=== PATIENT | female | born 1985 | race Caucasian/White ===

== ENCOUNTER → 2023-09-08 11:20 | Outpatient (CLI) | payer OTHER, SELFPAY ==
--- NOTE | ~2023-09-08 | US_ITS ---
EXAMINATION: US transvaginal DATE: 09/08/2023 12:04 INDICATION: Menorrhagia Comparison:No prior studies for comparison. TECHNIQUE: Multiple transabdominal and endovaginal sonographic images of the pelvis performed. FINDINGS: The uterus measures 7.2 x 4.5 x 5.7 cm. The endometrial complex measures 1.6 cm. The right ovary measures 4 x 2.5 x 3.5 cm and the left ovary measures 2.2 x 1.8 x 1.4 cm. There is a right ovarian cyst measuring 2.8 cm. There are small follicles in each ovary. Normal doppler signal i n both ovaries. There is no free fluid in the pelvis. There are no abnormal masses seen on either side. IMPRESSION: 1. Right ovarian cyst measuring 2.8 cm. 2: Endometrial thickening measuring 1.6 cm. Reviewed, dictated and finalized at location L.
== END ==
PROVIDERS: PCP Nurse Practitioner; Visit Provider Nurse Practitioner
DX: N93.8 Other specified abnormal uterine and vaginal bleeding (principal); N92.0 Excessive and frequent menstruation with regular cycle; N83.201 Unspecified ovarian cyst, right side
CPT/HCPCS: 76830

== ENCOUNTER 2024-01-25 04:14 | Day surgery (SDC) | payer OTHER, SELFPAY ==
--- NOTE | 2024-01-14 16:25 | SUR.PREOP ---
Report to the Outpatient Waiting Room, entrance under the green pavilion located off [facility], at time 0815 on date 01/25/24. Planned Procedure Time: 1015. Time changes happen often and if your time is changed the preop area will call you the afternoon before. - You and your visitor will be asked to self-screen and do not enter if you have any COVID symptoms. - A mask is optional within the hospital at this time. Patients may have clear liquids (water, carbonated beverages, clear teas, apple juice) until 3 hours prior to surgery with a maximum of 20 ounces. - NO CLEAR LIQUIDS AFTER 0715 - No food from midnight until time of surgery - Infants may have breast milk until 4 hours before surgery, infant formula 6 hours prior to surgery. - Children will be allowed to drink immediately following surgery. If applicable, please bring a bottle or sippy cup to assist with drinking. Juice, water, soda, and popsicles are readily available. For infants on formula, please bring formula the day of surgery. Pacifiers are allowed. Take the following medications with a SIP of water the morning of surgery: TIZANIDINE, ACETAMINOPHEN DO NOT STOP ANY OF YOUR OTHER PRESCRIPTION MEDICATIONS PRIOR TO SURGERY ?EXCEPT THE FOLLOWING Medications to discontinue per physician N/A Date to take last dose Please no make-up, nail indonesian, hairspray, perfume, deodorant, or body powder the day of surgery. No jewelry (including any body piercings) or valuables the day of surgery, leave them at home. Please take a shower or bath the night before, or the morning of, surgery with an antibacterial soap. Wear comfortable, loose fitting clothing. Children are encouraged to wear pajamas. - Jewelry must be removed prior to entering the operating room. Rings and piercings that are not removed may be cut off. - The hospital will not accept responsibility for valuables. - Please leave all valuables, including medications, at home the day of surgery. If you are going home after surgery, a licensed lead driver must drive you home. - NO public transportation without another adult if you receive anesthesia. - We recommend that an adult stay with you for 24 hours following discharge. - We also recommend that you do not drive, make important decision, drink alcoholic beverages, or take any drugs that were not prescribed by your health care provider for at least 24 hours after your discharge time. For Pediatric surgeries, we recommend two adults accompany the child home. Follow any additional instructions given to you from your surgeon. If you or anyone in your household have experienced Covid symptoms in the past week, please notify your surgeon or the nurse liaison at the phone number below for possible testing. Telephone instructions given to KSENIA RIOS and asked if any additional questions and then verbalized understanding. Patient advised to call surgeon office or pre surgery nurse liaison [phone] if any additional questions.
[2024-01-14 16:42] VITALS: BMI 35.9
[2024-01-25] VITALS (7 sets, daily range): BP systolic 98–119; BP diastolic 43–84; PULSE 47–66; RESP 12–14; TEMP 36.8; O2SAT 98–100; BMI 36.6
--- NOTE | 2024-01-25 07:25 | WPDHPUPDATE1 ---
History and Physical Update Update Date/Time: 01/25/24 07:25 History and Physical has been reviewed, including an updated exam of the patient. There are NO changes in the patient's condition. Risks, benefits, and alternatives have been discussed and questions answered. Patient agrees to proceed with procedure.
--- NOTE | 2024-01-25 07:25 | PM.HPGS ---
History of Present Illness History of Present Illness Consent: Risks, benefits, and alternatives have been discussed and questions answered. Patient agrees to proceed with procedure. Chief complaint: menorrhagia Narrative: Rosaura Vyas is a 38 year old female with a benign workup for menorrhagia. Multiple options were discussed and the patient has decided on endometrial ablation. Risks of infection, bleeding, perforation, and device failure are reviewed with the patient success of the procedure was also discussed. Patient voices understanding and agrees to proceed. Review of Systems Review of Systems: not repeated day of surgery; patient states no changes in status PMFSH Past Medical History Medical History (Updated 01/25/24 @ 07:27 by Sharon Bro MD) Depression (normal spontaneous vaginal delivery) x1 Surgical History Surgical History (Updated 01/25/24 @ 07:27 by Sharon Bro MD) History of section, low transverse x2 Status post cholecystectomy Social History Social History Smoking status: Never smoker Living arrangements: with family Spiritual care concerns: No Meds Home Medications and Allergies Home Medications Medication Instructions Recorded Confirmed Type acetaminophen 500 mg tablet 1,000 mg PO Q6-8H PRN Pain 01/14/24 01/14/24 History (Tylenol Extra Strength) misoprostol 200 mcg tablet 1,000 mcg PO HS 01/14/24 01/14/24 History tizanidine 4 mg tablet 4 mg PO Q8-10H PRN Muscle Pain 01/14/24 01/14/24 History Allergies Allergy/AdvReac Type Severity Reaction Status Date / Time doxycycline Allergy Severe Dizziness Verified 01/14/24 16:37 Penicillins Allergy Severe Difficulty Verified 01/14/24 16:37 Breathing promethazine [From Phenergan] Allergy Severe Difficulty Verified 01/14/24 16:37 Breathing Exam Const: General: healthy appearing and alert Orientation/consciousness: patient oriented x3 Resp: Effort & Inspection: normal respiratory effort GI: GI Palp: Yes Soft to palpation, No Tenderness to palpation present (GI) and No Palpable mass present : External Female Exam: normal external appearance Speculum Exam - Vagina: normal appearance of the vagina and normal vaginal discharge Speculum Exam - Cervix: normal appearance of the cervix Bimanual exam- vagina & uterus: uterine size normal and consistency normal Bimanual Exam- Adnexa, other: normal adnexae and No adnexal tenderness Neuro: General: patient oriented x3 Assessment and Plan Assessment and plan (1) Menorrhagia: Code(s): N92.0 - Excessive and frequent menstruation with regular cycle Status: Acute Assessment and Plan: plan to proceed with Marce endometrial ablation
[2024-01-25] MEDS: ACETAMINOPHEN 500 MG TABLET 1000 MG PO (08:51)
--- NOTE | 2024-01-25 09:51 | WPDANESEPPF ---
Anes - Initial Pre Proc Eval Procedure: Operation Date: 01/25/24 10:15 Proposed Procedures p Hysteroscopy with Marce Endometrial Ablation - Sharon Bro MD Date/Time: 01/25/24 09:51 Surgeon: Sharon Bro MD Pre Op Diagnosis: menorrhagia Patient Data Age: 38 Gender: F Height: 1.7 m Weight: 106 kg Last Vital Signs Temp 36.8 C 01/25/24 09:01 Pulse 58 L 01/25/24 09:01 Resp 14 01/25/24 09:01 BP 110/43 L 01/25/24 09:01 Pulse Ox 100 01/25/24 09:01 O2 Del Method Room Air 01/25/24 09:01 Allergies Allergy/AdvReac Type Severity Reaction Status Date / Time doxycycline Allergy Severe Dizziness Verified 01/14/24 16:37 Penicillins Allergy Severe Difficulty Verified 01/14/24 16:37 Breathing promethazine [From Phenergan] Allergy Severe Difficulty Verified 01/25/24 08:37 Breathing Home Medications Medication Instructions Recorded Confirmed Type acetaminophen 500 mg tablet 1,000 mg PO Q6-8H PRN Pain 01/14/24 01/25/24 History (Tylenol Extra Strength) misoprostol 200 mcg tablet 1,000 mcg PO HS 01/14/24 01/14/24 History tizanidine 4 mg tablet 4 mg PO Q8-10H PRN Muscle Pain 01/14/24 01/14/24 History Patient hx anesthesia problems: none Family hx anesthesia problems: none Results Review: All pre-operative results and documents have been reviewed as part of the pre-operative evaluation. [facility] Past Medical History Medical History Depression (normal spontaneous vaginal delivery) x1 Surgical History Surgical History History of section, low transverse x2 Status post cholecystectomy Social History Social History Smoking status: Never smoker Living arrangements: with family Spiritual care concerns: No Anes - Eval Final PreProcedure Day of Procedure 01/25/24 09:51 Patient weight: obese Heart: regular rate and rhythm Lungs: clear to auscultation Airway: Mallampati scale class II Neurological: alert and oriented Last oral intake: >/= 8 hours ASA classification: II Emergent: no Anesthetic plan: proceed Anesthesia type and monitoring: general GIVS and standard monitoring Results Review: All pre-operative results and documents have been reviewed as part of the pre-operative evaluation. Informed Consent: The patient's anesthetic plan and its attendant risks and benefits were discussed with the patient/family/POA. Questions were solicited and answers provided to the satisfaction of the patient/family/POA.
[2024-01-25] MEDS: LACTATED RINGERS 1,000 ML 30 ML IV CONT (10:15)
--- NOTE | 2024-01-25 10:21 | W.PM.PROC2 ---
Procedure Note - Detailed Date of Procedure 01/25/24 Pre-op Diagnosis menorrhagia Post-op Diagnosis Same Procedure Performed D&C hysteroscopy with Marce endometrial ablation Surgeon Sharon Bro MD Anesthesia MAC Findings internal cervical stenosis; polyps of the endometrium and endocervical canal; otherwise grossly normal appearance Description of Procedure The patient is taken to the operating room and placed under anesthesia in the dorsal position. She was prepped and draped in usual sterile fashion. [place] speculum was placed in the vagina and the cervix grasped on the anterior lip with a tenaculum. The uterus is attempted to be sounded and stenosis is encountered. The 4/5 Hegar dilator was used to open the internal os. The diagnostic hysteroscope is then placed and due to the polyps being present in the endometrium and endocervix the Aveeta resection device is opened and placed. The polyps are removed in their entirety. The Marce device is then opened. The cervix is serially dilated to an 8 Hegar. The uterus is sounded to 8cm. The device is set at 5cm. The Marce device is opened and placed. Cavity assessment passed on the 1st attempt. Treatment cycle lasted the full 10minutes. The ablation device is removed and the hysteroscope replaced with good ablation effect noted. All instruments are removed. Sponge, needle, and instrument counts are correct per the OR staff. The patient was awakened from anesthesia and taken to recovery in stable condition. Estimated Blood Loss 5 Drains No Packing No Pathology Yes ( Endometrial shavings) Complications No immediate complications Condition Stable Disposition PACU
[2024-01-25] MEDS: oxyCODONE HCL (*CRX) 5 MG TAB IR PO ×2 (11:14→12:44)
[2024-01-25] MEDS: HYDROmorphone HCL INJ (*CRX) 1 MG/ML SYR 0.5 MG IV PUSH (12:21)
== END 2024-01-25 12:53 | disposition home or self-care (01) ==
PROVIDERS: PCP Internal Medicine; Visit Provider Obstetrics & Gynecology Gynecology
PROC: 0U5B8ZZ Destruction of Endometrium, Via Natural or Artificial Opening Endoscopic (ICD-10-PCS; CPT 58563; principal; 2024-01-25 10:15)
DX: N92.0 Excessive and frequent menstruation with regular cycle (principal); N84.0 Polyp of corpus uteri; N84.1 Polyp of cervix uteri; E66.9 Obesity, unspecified; Z68.36 Body mass index [BMI] 36.0-36.9, adult
CPT/HCPCS: 58563; 88305; A9270; J1170; J2250; J2704; J3010; J7120

== ENCOUNTER 2025-01-09 09:03 | Outpatient (CLI) | payer OTHER, SELFPAY ==
--- OUTSIDE RECORDS SUMMARY | 2025-01-09 09:55 | XMS_ITS | Clinical Summary ---
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 This disclosure is being madepursuant to the Care Everywhere program and may not contain all information available regarding this patient. Last updated 18.[facility] Allergies Active Allergy Reactions Criticality Noted Date Comments Penicillins Shortness of Breath High 06/09/2019 Promethazine Shortness of Breath High 06/09/2019 Medications * Be aware that medications may not be up to date on this document. Alwaysverify current medications with the patient. Medication Sig Dispensed Refills Start Date End Date Status pyridoxine (VITAMIN B-6) 25 MG tablet Take 50 mg by mouth once daily Active Vit-Fe Fumarate-FA ( VITAMIN) 28-0.8 MG tablet Take 1 tablet by mouth once daily Active diphenhydrAMINE-APAP, sleep, (TYLENOL PM EXTRA STRENGTH PO) Active Active Problems Problem Noted Date Diagnosed Date Gestational diabetes mellitus (GDM) in third tri mester 05/17/2019 Polyhydramnios, antepartum complication 05/10/20 19 Excessive growth affec ting management of in third trimester 05/10/2019 Social History Tobacco Use Types Packs/Day Years Used Date Smoking Tobacco: Never Smokeless Tobacco: Never Alcohol Use Standard Drinks/Week Comments No 0 (1 standard drink = 0.6 oz pur e alcohol) Sex and Gender Information Value Date Recorded Sex Assigned at Not on file Gender Identity Not on file Sexual Orientation Not on file Last Filed Vital Signs Vital Sign Reading Time Taken Comments Blood Pressure 116/64 06/09/2019 2:56 PM CDT Pulse 95 06/09/2019 2:56 PM CDT Temperature - - Respiratory Rate 18 05/30/2019 4:21 PM CDT Oxygen Saturation - - Inhaled Oxygen Concentration - - Weight 105.2 kg (232 lb) 06/09/2019 2:56 PM CDT Height - - Body Mass Index - - Plan of Treatment Health Maintenance Due Date Last Done Comments PAP SMEAR 1986 HIV SCREENING 2001 HEPATITIS C SCREENING 05/06/2004 DTAP/TDAP/TD VACCINES (1 - Tdap) 2005 HEPATITIS B VACCINE (1 of 3 - 19+ 3-dose series) 2005 COVID-19 VACCINE ( - 2023-2 5 season) 2024 INFLUENZA VACCINE (#1) 2024 0, 09/20/2018, 11/03/2014 DEPRESSION SCREENING 11/30/2024 ZOSTER VACCINE (1 of 2) 2036 HIB VACCINE Aged Out No longer eligi ble based on patient's age to complete this topic HPV VACCINE Aged Out No longer eligi ble based on patient's age to complete this topic MENINGOCOCCAL (Group B) VACCINE Aged Out No longer eligible b ased on patient's age to complete this topic MENINGOCOCCAL VACCINE Aged Out No jorge alberto emelina eligible based on patient's age to complete this topic PNEUMOCOCCAL VACCINE Aged Out No long er eligible based on patient's age to complete this topic Ksenia Rios Personal/Famil y Self 1985 KSENIA RIOS Personal/Famil y Spouse
--- OUTSIDE RECORDS SUMMARY | 2025-01-09 09:55 | XMS_ITS | Referral Summary ---
Author Organization [facility] Address [address] [place] [phone] Care Team Providers Care Rattling Machine Tender Name Role Phone Yesica Stovall MD Primary Care Provider Encounters Date Type Department Care Team Description 10/17/2024 8:10 AM CRM ARCHITECT - 10/17/2024 11:59 PM CRM ARCHITECT Hospital Encounter [facility] Di[facility] Imaging [address] [place] [id number] Lumbar pain Discharge Disposition: Discharge to home or self care 10/17/2024 8:00 AM CRM ARCHITECT Office Visit [facility] Orthopedics and Sports Medicine [address] [place] [address] [place] [phone] Denise Wright, NAE Chronic right-sided low back pain with right-sided sciatica; Degeneration of intervertebral disc of lumbar region, mild L3-L4 with discogenic back pain and lower extremity pain; Myalgia, other site from Last 3 Months Allergies Active Allergy Reactions Criticality Noted Date Comments Doxycycline Dizziness,Headache,V ision changes Medium 04/21/2022 Penicillins Shortness of breath High 01/23/2018 Promethazine Shortness of breath,Palpitations High 03/28/2019 Sulfamethoxazole-Trimet hoprim Headache,Joint pain,Other (See comments) Low 10/01/2023 Nausea, stiff neck, Medications ascorbic acid, vitamin C, (VITAMIN C) 1,000 mg CR tablet Active butalbital-aceta minophen-caffein e (ESGIC) 50-325-40 mg per tablet Take 1 tablet by mouth every 4 (four) hours as needed for pain 04/18/2024 Active tiZANidine (ZANAFLEX) 4 mg tablet Take 1 tablet (4 mg total) by mouth every 8 (eight) hours as needed for muscle spasms for up to 15 days 45 tablet 11/09/2024 Active Active Problems No known active problems Resolved Problems Problem Noted Date Diagnosed Date Resolved Date Gestational diabetes mellitu s (GDM) in third trimester 05/17/2019 11/14/2022 Immunizations Name Administration Dates Next Due Influenza, Quadrivalent, Rec ombinant, Egg Free, Preservative Free, Intramuscular 09/20/2018 Influenza, Quadrivalent, Spl it, Preservative Free, Intramuscular 08/27/2020,11/03/2014 Influenza, Unspecified 08/15/2024(Deferr ed: Patient Refused),08/30/2023(Deferred: Patient Refused),09/01/2022(Deferred: Patient Refused),08/30/2022(Deferred: Patient Refused),02/08/2020(Deferred: Patient Refused) Tdap 05/13/2019 Social History Tobacco Use Types Packs/Day Years Used Date Smoking Tobacco: Never Smokeless Tobacco: Never Tobacco Cessation:Counseling Given: Not Answered Alcohol Use Standard Drinks/Week Comments Not Currently 0 (1 standard drink = 0.6 oz pur e alcohol) AUDIT-C Answer Date Recorded Q1: How often do you have a drink containing alcohol? Never 04/26/2024 Q2: How many drinks containi ng alcohol do you have on a typical day when you are drinking? Patient does not drink Q3: How often do you have si x or more drinks on one occasion? Never 04/26/2024 PHQ-2 Answer Date Recorded PHQ-2 Total Score (If total score is 3 or more points, staff should administer the PHQ-9) 0 08/15/2024 Comments No Sex and Gender Information Value Date Recorded Sex Assigned at Not on file Legal Sex Female 8:59 PM CRM ARCHITECT Gender Identity Female 02/08/2020 5:42 AM CDT Sexual Orientation Not on file Last Filed Vital Signs Vital Sign Reading Time Taken Comments Blood Pressure 110/76 08/15/2024 11:06 AM CDT Pulse 74 08/15/2024 11:06 AM CDT Temperature 36.4 C (97.5 F) 08/15/2024 11:06 AM CDT Respiratory Rate 12 04/26/2024 3:38 PM CDT Oxygen Saturation 98% 08/15/2024 11:06 AM CDT Inhaled Oxygen Concentration - - Weight 108 kg (238 lb) 10/17/2024 8:04 AM CRM ARCHITECT Height 170.2 cm (5' 7 ) 10/17/2024 8:04 AM CRM ARCHITECT Body Mass Index 37.28 10/17/2024 8:04 AM CRM ARCHITECT Plan of Treatment Not on file Procedures Procedure Name Priority Date/Time Associated Diagnosis Comments XR SPINE LUMBAR 2 OR 3 VIEWS Schedule Routine, Read Routine (OP Routine) 10/17/2024 8:21 AM CRM ARCHITECT Lumbar pain IL INJECTION SINGLE/INTERNET MARKETING MANAGER TRIGGER POINT 1/2 MUSCLES Routine 10/17/2024 8:00 AM CRM ARCHITECT Myalgia, other site IL INJECTION SINGLE/INTERNET MARKETING MANAGER TRIGGER POINT 1/2 MUSCLES Routine 10/17/2024 8:00 AM CRM ARCHITECT Myalgia, other site HM PAP SMEAR WITH HPV Routine 07/04/2019 from Last 3 Months or Most Recently Relevant to Health Maintenance Results * XR Spine Lumbar 2 or 3 Views (10/17/2024 8:21 AM CRM ARCHITECT) Anatomical Region Laterality Modality Spine N/A Computed Radiogr aphy 10/18/2024 12:4 1 PM CRM ARCHITECT Narrative 10/18/2024 12:42 PM CRM ARCHITECT EXAM DESCRIPTION: XR SPINE LUMBAR 2 OR 3 VIEWS REASON FOR STUDY: pain Pain in low back and right lateral hip since fall in Nov 2023 FINDINGS: Two views submitted with comparison 12/15/2023. No acute fractures are identified. There is mild L3-L4 degenerative disc disease. Flexion-extension views demonstrate no abnormal translation. IMPRESSION: Mild L3-L4 degenerative disc disease. THIS IS AN ELECTRONICALLY VERIFIED FINAL REPORT 10/18/2024 12:42 PM - Electronically signed by Alden Stevens M.D. T: Report ID: [id number] Reading Location: [id number] Procedure Note Alden Stevens MD - 10/18/2024 EXAM DESCRIPTION: XR SPINE LUMBAR 2 OR 3 VIEWS REASON FOR STUDY: pain Pain in low back and right lateral hip since fall in Nov 2023 FINDINGS: Two views submitted with comparison 12/15/2023. No acute fractures are identified. There is mild L3-L4 degenerative disc disease. Flexion-extension views demonstrate no abnormal translation. IMPRESSION: Mild L3-L4 degenerative disc disease. THIS IS AN ELECTRONICALLY VERIFIED FINAL REPORT 10/18/2024 12:42 PM - Electronically signed by Alden Stevens M.D. T: Report ID: [id number] Reading Location: [id number] Denise Wright NP IMG XR PROCEDURES Final Res ult * IL INJECTION SINGLE/INTERNET MARKETING MANAGER TRIGGER POINT 1/2 MUSCLES (10/17/2024 8:00 AM CRM ARCHITECT) Narrative Denise Wright NP - 10/17/2024 8:00 AM CRM ARCHITECT Denise Wright NP 10/18/2024 1:20 PM Trigger Point Injection Performed by: Denise Wright NP Authorized by: Denise Wright NP Consent Given by: Patient Site marked: the procedure site was marked Timeout: prior to procedure the correct patient, procedure, and site was verified Consent obtained:: Verbal Risks discussed, including, but not limited to:: Pain Alternatives discussed:: Alternative treatment Site/side marked: Yes Indications: Myalgia Location: R gluteus eliu Local anesthetic: Ethyl chloride spray Ultrasound guidance: No Needle size: 22 G Number of muscles: 1 or 2 Approach: Posterior Medications: 60 mg ketorolac 60 mg/2 mL Patient tolerance: Patient tolerated the procedure well with no immediate complications Denise Wright NP IN CLINIC/BEDSIDE ORDERABLE S Final Result * IL INJECTION SINGLE/INTERNET MARKETING MANAGER TRIGGER POINT 1/2 MUSCLES (10/17/2024 8:00 AM CRM ARCHITECT) Denise Foy NP - 10/17/2024 8:00 AM CRM ARCHITECT Denise Wright NP 10/18/2024 1:20 PM Trigger Point Injection Performed by: Denise Wright NP Authorized by: Denise Wright NP Consent Given by: Patient Site marked: the procedure site was marked Timeout: prior to procedure the correct patient, procedure, and site was verified Consent obtained:: Verbal Risks discussed, including, but not limited to:: Pain and repeat procedure Alternatives discussed:: Alternative treatment, delayed treatment and no treatment Site/side marked: Yes Indications: Myalgia Location: R lumbar paraspinal and R piriformis Local anesthetic: Ethyl chloride spray Ultrasound guidance: No Needle size: 22 G Number of muscles: 1 or 2 Approach: Posterior Medications: 4 mL lidocaine 10 mg/mL (1 %); 80 mg triamcinolone 40 mg/mL Patient tolerance: Patient tolerated the procedure well with no immediate complications Denise Wright FORENSIC ECONOMIST IN CLINIC/BEDSIDE ORDERABLE S Final Result * PAP SMEAR WITH HPV (07/04/2019) Pap smear Normal Historical Provider HEALTH MAINTENANCE Final Result from Last 3 Months or Most Recently Relevant to Health Maintenance Insurance [place] [employer] [facility] [employer] OPEN ACCESS Care Teams Rattling Machine Tender Relationship Specialty Start Date End Date Yesica Stovall MD PCP - General Internal Medicine 05/19/19
--- OUTSIDE RECORDS SUMMARY | 2025-01-09 09:55 | XMS_ITS | Clinical Summary ---
Author Organization [facility] at the Medical Office Building Address [address] [place] [phone] Care Team Providers Care Field Map Editor Name Role Phone Yesica Stovall MD Primary Care Provider Allergies Active Allergy Reactions Criticality Noted Date [...] s (GDM) in third trimester 05/17/2019 11/14/2022 Encounters Date Type Department Care Team Description 10/17/2024 8:10 AM HOLTER SCANNING TECHNICIAN - 10/17/2024 11:59 PM HOLTER SCANNING TECHNICIAN Hospital Encounter [facility] Diag Imaging [address] [place] [address] Lumbar pain Discharge Disposition: Discharge to home or self care 10/17/2024 8:00 AM HOLTER SCANNING TECHNICIAN Office Visit [facility] Orthopedics and Sports Medicine [facility] [address] [place] [phone] Denise Wright, NAE Chronic right-sided low back pain with right-sided sciatica; Degeneration of intervertebral disc of lumbar region, mild L3-L4 with discogenic back pain and lower extremity pain; Myalgia, other site from Last 3 Months Immunizations Name Administration Dates Next Due Influenza, Quadrivalent, Rec ombinant, Egg Free, Preservative Free, Intramuscular 09/20/2018 Influenza, Quadrivalent, Spl it, Preservative Free, Intramuscular 08/27/2020,11/03/2014 Influenza, Unspecified 08/15/2024(Deferr ed: Patient Refused),08/30/2023(Deferred: Patient Refused),09/01/2022(Deferred: Patient Refused),08/30/2022(Deferred: Patient Refused),02/08/2020(Deferred: Patient Refused) Tdap 05/13/2019 Surgical History Surgery Date Site/Laterality Comments SECTION CHOLECYSTECTOMY 10/11/2019 HYSTEROSCOPY 11/26/2023 Bilateral ABLATION 12/31/2023 - 01/28/2024 Uterine Medical History Medical History Date Comments Anemia 2004 Depression 2019 Menstrual problem Family History Medical History Relation Name Comments Hypertension Father Mike Cancer Maternal Grandfather Maco Obesity Maternal Grandmother Gerri Alzheimer's disease Paternal Grandmother Tsering Relation Name Status Comments Father Mike Alive Maternal Grandfather Bill Maternal Grandmother Gerri Mother Alive Paternal Grandmother Tsering Social History Tobacco Use Types Packs/Day Years [...] on file Legal Sex Female 8:59 PM HOLTER SCANNING TECHNICIAN Gender Identity Female 02/08/2020 5:42 AM CDT Sexual Orientation Not on file Obstetrics History Last Filed Vital Signs Vital Sign Reading Time Taken Comments Blood Pressure 110/76 08/15/2024 11:06 AM CDT Pulse 74 08/15/2024 11:06 AM CDT Temperature 36.4 C (97.5 F) 08/15/2024 11:06 AM CDT Respiratory Rate 12 04/26/2024 3:38 PM CDT Oxygen Saturation 98% 08/15/2024 11:06 AM CDT Inhaled Oxygen Concentration - - Weight 108 kg (238 lb) 10/17/2024 8:04 AM HOLTER SCANNING TECHNICIAN Height 170.2 cm (5' 7 ) 10/17/2024 8:04 AM HOLTER SCANNING TECHNICIAN Body Mass Index 37.28 10/17/2024 8:04 AM HOLTER SCANNING TECHNICIAN Plan of Treatment Health Maintenance Due Date Last Done Comments Hepatitis C Screening 1985 Hepatitis B Screening 2004 Cervical Cancer Screening 07/04/2024 07/04/2019 Regular Well Visit/Exam 18-64 04/26/2025 04/26/2024, 04/23/2023, 02/07/2021, Additional history exists Influenza Vaccine (#1) 2025 , 09/20/2018, 11/03/2014 Postponed from 07/31/2024 (Patient declined, but will receive in the future) Depression Screening 08/15/2025 08/15/2024, 04/26/2024, 04/26/2024, Additional history exists DTaP/Tdap/Td Vaccine (2 - Td or Tdap) 05/13/2029 05/13/2019 HPV Vaccines Aged Out No longer eligi ble based on patient's age to complete this topic Pneumococcal vaccine <65 Aged Out No longer eligible based on patient's age to complete this topic Varicella Vaccines Discontinued Procedures Procedure Name Priority Date/Time Associated Diagnosis Comments XR SPINE LUMBAR 2 OR 3 VIEWS Schedule Routine, Read Routine (OP Routine) 10/17/2024 8:21 AM HOLTER SCANNING TECHNICIAN Lumbar pain IN INJECTION SINGLE/LOOM CONTROL CHAIN BUILDER TRIGGER POINT 1/2 MUSCLES Routine 10/17/2024 8:00 AM HOLTER SCANNING TECHNICIAN Myalgia, other site IN INJECTION SINGLE/LOOM CONTROL CHAIN BUILDER TRIGGER POINT 1/2 MUSCLES Routine 10/17/2024 8:00 AM HOLTER SCANNING TECHNICIAN Myalgia, other site HM PAP SMEAR WITH HPV Routine 07/04/2019 from Last 3 Months or Most Recently Relevant to Health Maintenance Results * XR Spine Lumbar 2 or 3 Views (10/17/2024 8:21 AM HOLTER SCANNING TECHNICIAN) Anatomical Region Laterality Modality Spine N/A Computed Radiogr aphy 10/18/2024 12:4 1 PM HOLTER SCANNING TECHNICIAN Narrative 10/18/2024 12:42 PM HOLTER SCANNING TECHNICIAN EXAM DESCRIPTION: XR SPINE LUMBAR 2 OR [...] by Alden Stevens M.D. T: Report ID: [id number] Reading Location: [id number] Procedure Note Alden Stevens MD - 10/18/2024 [...] by Alden Stevens M.D. T: Report ID: [id number] Reading Location: [id number] Denise Wright NP IMG XR PROCEDURES Final Res ult * IN INJECTION SINGLE/LOOM CONTROL CHAIN BUILDER TRIGGER POINT 1/2 MUSCLES (10/17/2024 8:00 AM HOLTER SCANNING TECHNICIAN) Narrative Denise Wright NP - 10/17/2024 8:00 AM HOLTER SCANNING TECHNICIAN Denise Wright NP 10/18/2024 1:20 PM Trigger [...] well with no immediate complications Denise Wright CAPTAIN AIRLINE PILOT IN CLINIC/BEDSIDE ORDERABLE S Final Result * IN INJECTION SINGLE/LOOM CONTROL CHAIN BUILDER TRIGGER POINT 1/2 MUSCLES (10/17/2024 8:00 AM HOLTER SCANNING TECHNICIAN) Narrative Denise Wright NP - 10/17/2024 8:00 AM HOLTER SCANNING TECHNICIAN Denise Wright NP 10/18/2024 1:20 PM Trigger [...] Most Recently Relevant to Health Maintenance Insurance [employer] [facility] OPEN ACCESS Care Teams Field Map Editor Relationship Specialty Start Date End Date Yesica Stovall MD PCP - General Internal Medicine 05/19/19
--- OUTSIDE RECORDS SUMMARY | 2025-01-09 09:55 | XMS_ITS | Patient Health Summary ---
Author Organization [facility] Address [address] [place] [address] Care Team Providers Care Financial Rep Name Role Phone Unavailable Primary Care Provider Unavailabl e Note from [facility],non-owned Affiliates and Associated Physician Practices is amultiple site organization consisting of ambulatory clinics and hospital sitesin [place], [place], [place] and [place]. This disclosure is being madepursuant to the Care Everywhere program and may not contain all information available regarding this patient. Last updated 18.[facility] Allergies * Penicillins(Shortness of Breath) -High Criticality * Promethazine(Shortness of Breath) -High Criticality Medications * Be aware that medications may not be up to date on this document. Alwaysverify current medications with the patient. * pyridoxine (VITAMIN B-6) 25 MG tablet Take 50 mg by mouth once daily * Vit-Fe Fumarate-FA ( VITAMIN) 28-0.8 MG tablet Take 1 tablet by mouth once daily * diphenhydrAMINE-APAP, sleep, (TYLENOL PM EXTRA STRENGTH PO) Active Problems Problem Noted Date Diagnosed Date [...] - - Body Mass Index - - Procedures * BIOPHYSICAL PROFILE W NST(Performed 06/09/2019) Performed for Polyhydramnios, antepartum, single or unspecified fetus (HCC), Excessive growthaffecting management of in third trimester, single or unspecified fetus (HCC), Gestational diabetes mellitus (GDM) in third trimester, gestational diabetes method of control unspecified (HCC) * BIOPHYSICAL PROFILE W NST(Performed 05/30/2019) Performed for Polyhydramnios, antepartum, single or unspecified fetus (HCC), Excessive growthaffecting management of in third trimester, single or unspecified fetus (HCC), Diet controlled gestational diabetes mellitus (GDM) in third trimester (HCC) * BIOPHYSICAL PROFILE W NST(Performed 05/24/2019) Performed for Polyhydramnios, antepartum, single or unspecified fetus (HCC), Excessive growthaffecting management of in third trimester, single or unspecified fetus (HCC), Gestational diabetes mellitus (GDM) in third trimester, gestational diabetes method of control unspecified (HCC) * SONOGRAM - COMPLETE(Performed 05/17/2019) Performed for Polyhydramnios, antepartum, single or unspecified fetus (HCC), Excessive growthaffecting management of , antepartum, single or unspecified fetus (HCC) * SONOGRAM - COMPLETE(Performed 05/10/2019) Performed for Polyhydramnios, antepartum, single or unspecified fetus (HCC) Results * BIOPHYSICAL PROFILE W NST (06/09/2019 3:58 PM CDT) Only the most recent of3 resultswithin the time period is included. Anatomical Region Laterality Modality Other 06/09/2019 3:58 PM CDT Narrative 06/09/2019 4:37 PM CDT RAHAT TAYLOR [facility] PHONE: FAX: Pat. Name: KSENIA RIOS. No: [id number] Study Date: 06/09/2019 3:58pm , Age: 06 1985, 35 Pregnancies: 4, Para 2, Ab 1 Height: 67 in Weight: 225 lb LMP: 09/10/2018 GA by LMP: 38w6d GA by Base: 38w1d KARRIE: 06/22/2019 GA by US: 37w6d KARRIE: 06/24/2019 GA Selected: 38w1d (From [facility]) KARRIE: 06/22/2019 Referring MD: Columba Traylor MD Consulting Technical Manager: Freda Valle, [facility], RD CPT4: 45440,30001 BMI: 35.24 Hist/Ind: Polyhydramnios on outside scan (43 cm) LGA GDM Class II Obesity MEASUREMENTS & AGE GROWTH EVALUATION Measurement GA Range Srce %for GA Ratios ----- ---- ------- BPD 10.4 cm Hadl BPD FL/BPD 0.71 (0.71 - 0.87) HC 36.9 cm Hadl HC FL/AC 0.19 (0.20 - 0.24* AC 40.0 cm Hadl AC HC/AC 0.92 (0.90 - 1.09) FL 7.4 cm 37w6d (73k4e-09g8i) Hadl FL 48% CI 0.80 (0.70 - 0.86) HL 6.3 cm 36w4d (50o2w-96y8m) Griffin HL 24% GA for sonogram 37w6d (64l0q-74d9g) Weight Estimate: based on (FL) Avg Weight: 4913 gm (4195-5630gm) Had : 10lbs, 13oz Normal: 3256 gm (2442-4070gm) Had Wt% >97 for 38w1d Heart Rate: 166 bpm Amniotic Fluid Index: 29.1cm (07.3-23.8)* Q1: 9.9cm Q2: 7.8cm Q3: 3.8cm Q4: 7.6cm Biophysical Profile: 09/08 Breathin Tone: 2 NST: 2 Movement: 2 AFV: 2 EVAL, PLACENTA Presentation: cephalic Placenta: posterior Heart Rate: 166 bpm Amniotic Fluid Volume: increased Anatomy!Normal!Abnormal!Suboptimal!Prev. Seen!Comments Cranium ! x ! ! ! x ! Mdl (CSP/Thal! ! ! x ! ! Ventricles ! ! ! x ! ! Choroid Plexu! ! ! x ! ! Cerebellum ! ! ! x ! ! Cisterna M. ! ! ! x ! ! Profile ! ! ! ! x ! Nasal Bone ! ! ! ! x ! Lip ! ! ! ! x ! Spine ! ! ! ! x ! Lungs ! ! ! ! x ! 4 Chamber Hea! ! ! x ! ! LVOT ! ! ! ! x ! RVOT ! ! ! x ! ! 3 Vessel View! ! ! x ! ! Cross-over ! ! ! x ! ! Ductal Arch ! ! ! x ! ! Aortic Arch ! ! ! ! x ! Caval View ! ! ! x ! ! Situs ! ! ! ! x ! Diaphragm ! ! ! ! x ! Stomach ! x ! ! ! x ! Bowel ! x ! ! ! x ! Kidneys ! x ! ! ! x ! Bladder ! x ! ! ! x ! 3 Vessel Cord! ! ! ! x ! Cord In! ! ! ! x ! Upper Extremi! ! ! ! x ! Hands ! ! ! ! x ! Lower Extreme! ! ! ! x ! Feet ! ! ! ! x ! External Yulisa! ! ! x ! ! Placental Cor! ! ! x ! ! CLINICAL SUMMARY Study Number: 5 A real fetus is identified in cephalic presentation. The placenta is posterior. The amniotic fluid volume is increased. TESTING: The Biophysical profile score is 10/10. The NST is reactive without decelerations. IMPRESSION: 1. Single live, IUP at 38w1d 2. Increased amniotic fluid volume 3. Reassuring testing 4. LGA growth 5. Examination limited by maternal body habitus, positioning, and advanced gestational age RECOMMEND: Recommend delivery by C/S for suspected macrosomia with EFW 4913 grams and polyhydramnios at 38 weeks and 1 day gestation with complicated by GDM. Further conservative management is higher risk for stillbirth. Further management per the primary OB provider. Thank you for allowing us the opportunity to care for your patient. Jack García MD <Electronic Signature> 06/09/2019 04:35pm Ab Patrick MD [facility] ORDERABLES * SONOGRAM - COMPLETE (05/17/2019 8:57 AM CDT) Only the most recent of2 resultswithin the time period is included. Anatomical Region Laterality Modality Other 05/17/2019 8:57 AM CDT Narrative 05/17/2019 10:26 AM CDT RAHAT Luna [facility] PHONE: FAX: Pat. Name: KSENIA RIOS Pat. No: [id number] Study Date: 05/17/2019 8:57am , Age: 06 1985, 34 Pregnancies: 4, Para 2, Ab 1 Height: 67 in Weight: 225 lb LMP: 09/10/2018 GA by LMP: 35w4d GA by Base: 34w6d KARRIE: 06/22/2019 GA Selected: 34w6d (From [facility]) KARRIE: 06/22/2019 Referring MD: Columba Traylor MD Consulting Technical Manager: Quita Ferrera CPT4: 92814,10394 BMI: 35.24 Hist/Ind: Polyhydramnios on outside scan (43 cm) LGA Negative glucose testing GDM Heart Rate: 154 bpm Amniotic Fluid Index: 22.4cm (07.9-24.9) Biophysical Profile: 09/08 Breathin Tone: 2 NST: 2 Movement: 2 AFV: 2 EVAL, PLACENTA Presentation: cephalic Umbilical Cord: 3 Vessels Placenta: posterior Heart Rate: 154 bpm Amniotic Fluid Volume: increased CLINICAL SUMMARY Study Number: 2 A single fetus is seen in the cephalic presentation. The amniotic fluid volume is WNL. The FHR baseline was 140-150 bpm during today's reactive NST. The FHR variability was moderate. IMPRESSION: Single, live, IUP at 34w6d. Amniotic fluid volume is WNL Biophysical profile: Reassuring testing, 09/08 RECOMMEND: Continue weekly testing Follow up growth assessment in 3 weeks Thank you for allowing us the opportunity to care for your patient Koffi Tellez MD <Electronic Signature> 05/17/2019 10:24am Ordering Provider Unlisted MD TANNER PRINCE
--- OUTSIDE RECORDS SUMMARY | 2025-01-09 09:55 | XMS_ITS | Referral Summary ---
Author Organization [facility] Address [address] [place] [address] Care Team Providers Care Molding Process Technician Name Role Phone Unavailable Primary Care Provider Unavailabl e Source Comments [facility] [employer] [facility],non-owned Affiliates and Associated Physician Practices is amultiple site organization consisting of ambulatory clinics and hospital sitesin [place], [place], [place] and [place]. This disclosure is being madepursuant to the Care Everywhere program and may not contain all information available regarding this patient. Last updated 18.[facility] [facility] Allergies Active Allergy Reactions Criticality Noted Date [...] Mass Index - - Plan of Treatment Not on file Ksenia Rios Personal/Famil y Self 1985 KSENIA RIOS Personal/Famil y Spouse
--- OUTSIDE RECORDS SUMMARY | 2025-01-09 09:55 | XMS_ITS | Continuity of Care Document ---
Author Name [facility] Organization [facility] Care Team Providers Care Garage Door Technician Name Role Phone DOD-VA Unavailable Unavailable Problems Combined list of problems from Department of Defense and Veterans Affairs facilities. It does not include entries that were removed or entered in error. Problem Status Onset Date Problem Type Date of Resolution Comments Source visit for: administrative purpose Inactive Condition DoD dysmenorrhea Inactive Condition DoD Preventive Medicine Established Patient Checkup Adult 18-39 Years Inactive Condition DoD astigmatism Active Condition DoD refractive error - hypermetropia Active Condition DoD visit for: routine eye exam Active Condition DoD Laboratory Studies Active Condition DoD nausea Inactive Condition DoD pharyngitis streptococcus, group A: beta hemolytic Inactive Condition DoD furuncle Active Condition DoD diarrhea Active Condition DoD fatigue Active Condition DoD epidermal inclusion cyst Active Condition DoD sinusitis Active Condition DoD sprain Inactive Condition L ankle DoD anemia Active Condition Fe defficient DoD upper respiratory infection acute Inactive Condition Pharyngitis with mild URI noted in 20 yo female with past history of [place] rapid strep negative with throat strep C&S obtained per Sgt. Russo and sent to lab. Meds prescribed. Patient instructed: rest, force fluids, universal precautions, NS DoD joint pain, localized in the knee Active Condition Alternate ice and heat as well as stretching DoD Allergies, Adverse Reactions, Alerts Combined list of allergies from Department of Defense and Veterans Affairs facilities. It does not include entries that were removed or entered in error. Substance Category Reaction Severity Reaction type Status Date Reported Comments Source PENICILLINS Drug allergy (disorder) Unknown active 05/19/2006 [facility] Stephen SIFUENTES ([facility] Encounters Combined list of: 1) Encounters from Department of Veterans Affairs facilities going backup to the last 18 months, not all VA inpatient encounters are included; 2) Encounters from the Department of Defense facilities going backup to 280 months. Location Location Details Encounter Type Encounter Number Reason For Visit Attending Provider ADM Date DC Date Status Disposition Source [address] [place] [address] Stephen SIFUENTES ([facility]Fam jorje Practice Non-GME FHI1) OUTPATIENT [id number] pain in both knees GONZALO GARCIA 10/03 Released w/o Limitations [address] [place] [address])(F amily Practic e Non-GME FHI1) [address] [place] [address])([facility] OUTPATIENT [id number] painful swelled tonsils x 3 days, diff to swallow JONNY SARABIA 01/01 Released w/o Limitations [address] [place] [address])(F amily Practic e Non-GME FHI1) [address] [place] [address])([facility] jorje Practice Non-GME FHI1) OUTPATIENT [id number] anemic JILLIAN JEFF 05/19 Released w/o Limitations [address] [place] [address])(F amily Practic e Non-GME FHI1) [address] [place] [address])([facility]) OUTPATIENT [id number] left knee ROMERO ACKERMAN 08/23 Released w/o Limitations [address] [place] [address])(F amily Practic e Non-GME FHI1) [address] [place] [address])([facility] TELE CONSULT [id number] Radiolo gy results - RICHARD Sewell 08/[address] [place] [address])(F amily Practic e Non-GME FHI1) [address] [place] [address])([facility]) OUTPATIENT [id number] throat MARRUFO, LUIS A 10/14 Released w/o Limitations [address] [place] [address])(F amily Practic e Non-GME FHI1) [address] [place] [address])([facility] jorje Practice Non-GME FHI1) OUTPATIENT [id number] flu like symptom s....[id number] JILLIAN JEFF 09/27 Released w/o Limitations [address] [place] [address])(F amily Practic e Non-GME FHI1) [address] [place] [address])([facility]) OUTPATIENT [id number] f/u per Jono JILLIAN Bower 10/04 Released w/o Limitations [facility] Stephen LEEB ([facility]F amily Practic e Non-GME FHI1) [address] [place] [address] Stephen LEEB ([facility]Fam jorje Practice Non-GME FHI1) OUTPATIENT [id number] spider bite [id number] RANDEE JILLIAN Maddi 12/14 Released w/o Limitations [address] [place] [address] Stephen LEEB [facility]F amily Practic e Non-GME FHI1) [address] [place] [address] Stephen LEEB [facility]Fam jorje Practice Non-GME FHI1) OUTPATIENT [id number] poss strep ldl RANDEE JILLIAN L 01/04 Released w/o Limitations [facility] Stephen LEEB ([facility]F amily Practic e Non-GME FHI1) [address] [place] [address] Stephen JESUSB [facility]co tt [facility] Fam Res Tm Red) OUTPATIENT [id number] has not felt well past two weeks, nausea eating/ fatigue MI BROWN 02/19 Released w/o Limitations [address] [place] [address] Stephen LEEB [facility])(S [facility] Fam Res Tm Red) [address] [place] [address] Stephen JESUSB [facility]Sco tt [facility] Fam Res Tm Red) TELE CONSULT [id number] [facility] GONZALEZ Plata 02/[address] [place] [address] Stephen JESUSB [facility]S [facility] Fam Res Tm Red) [address] [place] [address] Stephen JESUSB [facility])(Opt ometry) OUTPATIENT [id number] Routine exam [phone] JANENE RIVERS 04/05 Released w/o Limitations [address] [place] [address] Stephen [facility]ESUSB [facility])(O ptometr y) [address] [place] [address] [employer] [facility])(War rior Op Med Cln Tm A Ad) OUTPATIENT [id number] Tiffanie delgadillo s w/PAP [phone] MI BROWN 04/25 Released w/o Limitations [address] [place] [address] [employer] [facility]W arrior Op Med Cln Tm A Ad) Procedures Combined list of: 1) Procedures from Department of Veterans Affairs facilities [facility], not all [facility] non-surgical procedures are included; 2) All procedures from the Department of Defense facilities. Procedure Procedure Type Code Date Perfomer Comments Sour e INTRAVENOUS INFUSION, THERAPY/DIAGNOSIS, ADMINISTERED PHYSICIAN/UNDER DIRECT SUPERVISION, PHYSICIAN; FELIX ADDITIONAL HOUR, UP TO EIGHT (8) HOURS (LIST SEPARATELY ADDITION TO CODE, PRIMARY PROCEDURE) 5 [facility] SCREENING PAPANICOLAOU SMEAR; OBTAINING, PREPARING AND CONVEYANCE OF CERVICAL OR VAGINAL SMEAR TO LABORATORY 4 DoD SCREENING [place]AP[place]AOU SMEAR; OBTAINING, PREPARING AND CONVEYANCE OF CERVICAL OR VAGINAL SMEAR TO LABORATORY 2 DoD DESTRUCTION (EG, LASER SURGERY, ELECTROSURGERY, CRYOSURGERY, CHEMOSURGERY, SURGICAL CURETTEMENT), OF BENIGN LESIONS OTHER THAN SKIN TAGS OR CUTANEOUS VASCULAR PROLIFERATIVE LESIONS; UP TO 14 LESIONS 0 DoD DESTRUCTION (EG, LASER SURGERY, ELECTROSURGERY, CRYOSURGERY, CHEMOSURGERY, SURGICAL CURETTEMENT), OF BENIGN LESIONS OTHER THAN SKIN TAGS OR CUTANEOUS VASCULAR PROLIFERATIVE LESIONS; UP TO 14 LESIONS 0 DoD DESTRUCTION (EG, LASER SURGERY, ELECTROSURGERY, CRYOSURGERY, CHEMOSURGERY, SURGICAL CURETTEMENT), OF BENIGN LESIONS OTHER THAN SKIN TAGS OR CUTANEOUS VASCULAR PROLIFERATIVE LESIONS; UP TO 14 LESIONS 0 DoD DESTRUCTION (EG, LASER SURGERY, ELECTROSURGERY, CRYOSURGERY, CHEMOSURGERY, SURGICAL CURETTEMENT), OF BENIGN LESIONS OTHER THAN SKIN TAGS OR CUTANEOUS VASCULAR PROLIFERATIVE LESIONS; UP TO 14 LESIONS 0 DoD DETERMINATION OF REFRACTIVE STATE 9 DoD INFECTIOUS AGENT ANTIGEN DETECTION BY IMMUNOASSAY WITH DIRECT OPTICAL (IE, VISUAL) OBSERVATION; STREPTOCOCCUS, GROUP A 9 DoD WET KRISSY, INCLUDING PREPARATIONS OF VAGINAL, CERVICAL OR SKIN SPECIMENS 6 DoD INFUSION, NORMAL SALINE SOLUTION , 1000 CC 6 DoD Cervical Pap Smear Cervical Pap Smear [id number] [phone] [place] BROWN DoD Determination Of Refractive State Determination Of Refractive State [phone] JANENE RIVERS DoD Ophthalmological New Patient Start Comprehensive Care Ophthalmological New Patient Start Comprehensive Care [phone] JANENE RIVERS DoD Social History Combined list of available smoking, tobacco, and other social history from Department of Defense and Veterans Affairs facilities. Social History Type Response Date Comment [facility] e This section is an empty social history section. DoD
[2025-01-09 09:59] LABS: Hemoglobin 14.6 g/dL (12.0-15.0)
== END 2025-01-09 09:04 | disposition home or self-care (01) ==
LOC: ANHSURGERY 09:27
PROVIDERS: PCP Internal Medicine; Visit Provider Obstetrics & Gynecology Gynecology
DX: N92.0 Excessive and frequent menstruation with regular cycle (principal)
CPT/HCPCS: 36415; 85014; 85018; 86850; 86900; 86901

== ENCOUNTER 2025-01-16 10:54 | Inpatient (IN) | payer OTHER, SELFPAY ==
[2025-01-04 14:20] VITALS: BMI 37.6
--- NOTE | 2025-01-04 14:25 | PC.NURSE ---
Report to the Outpatient Waiting Room, entrance under the green pavilion located off [facility], at time _0745_ on date _[id number]_. Planned Procedure Time: _0945_.? Time changes happen often and if your time is changed the preop area will call you the afternoon before. - You and your visitor will be asked to self-screen and do not enter if you have any COVID symptoms. Please call surgeon if you need to reschedule. - A mask is optional within the hospital at this time. Patients may have clear liquids (water, carbonated beverages, clear teas, apple juice) until 3 hours prior to surgery with a maximum of 20 ounces. - No food from midnight until time of surgery and no smoking, or chewing Tobacco (or any form of nicotine). No chewing gum, candy or mints. Take only the following medications with a SIP of water on the morning of surgery: ____Acetaminophen if needed.____ DO NOT STOP ANY OF YOUR OTHER PRESCRIPTION MEDICATIONS PRIOR TO SURGERY EXCEPT THE FOLLOWING Medications to discontinue per physician ___None____ Please no make-up, nail welsh, hairspray, perfume, deodorant, or body powder the day of surgery.? No jewelry (including any body piercings) or valuables the day of surgery, leave them at home.? Please take a shower or bath the night before, or the morning of, surgery with an antibacterial soap.? Wear comfortable, loose fitting clothing.? - Jewelry must be removed prior to entering the operating room.? Rings and piercings that are not removed may be cut off. - The hospital will not accept responsibility for valuables.? - Please leave all valuables, including medications, at home the day of surgery. If you are going home after surgery, a licensed local company tanker driver must drive you home.? - NO public transportation without another adult if you receive anesthesia. - We recommend that an adult stay with you for 24 hours following discharge. - We also recommend that you do not drive, make important decision, drink alcoholic beverages, or take any drugs that were not prescribed by your health care provider for at least 24 hours after your discharge time. Hold all vitamins and supplements for 3 days per anesthesiologist. Follow any additional instructions given to you from your surgeon. Telephone instructions given to ___Rosaura__and asked if any additional questions and then verbalized understanding. Patient advised to call surgeon office or pre surgery nurse liaison [phone] if any additional questions
[2025-01-16] VITALS (11 sets, daily range): BP systolic 100–139; BP diastolic 60–75; PULSE 51–82; RESP 16–18; TEMP 36.2–37; O2SAT 97–100
--- NOTE | ~2025-01-16 | XR_ITS ---
EXAMINATION: XR chest 2V 01/18/2025 10:19 INDICATION: Chest pain. PROCEDURE: 2 view chest COMPARISON: No prior studies for comparison. FINDINGS: There is right upper thoracic atelectasis. No focal pneumonia, edema. The cardiomediastinal silhouette is within normal limits. There are no pleural effusions. There is no pneumothorax suspe cted. IMPRESSION: 1: Right upper thoracic atelectasis. Reviewed, dictated and finalized at location B. BURNER
--- NOTE | ~2025-01-16 | CT_ITS ---
EXAMINATION: CTA chest PE protocol DATE: 01/18/2025 10:26 INDICATION: Chest pain and shortness of breath TECHNIQUE: Computed tomography (CT) pulmonary angiogram of the chest was performed with 100 mL Omnipa que-350 intravenous contrast. Additional 3D reconstructions utilizing coronal maximum intensity proje ction (MIP) were performed. Automated exposure control and iterative reconstruction technique were em ployed. The dose-length product was 608.62 mGy-cm. COMPARISON: None FINDINGS: No pulmonary embolism. There is discoid and dependent atelectasis in the bilateral lower lobes. No pn eumonia, pulmonary edema, pleural effusion or pneumothorax. Heart size is normal. No pericardial effu olga. Thoracic aorta is normal in caliber. No pathologically enlarged thoracic lymphadenopathy. Diffu se hepatic steatosis. Cholecystectomy clips the gallbladder fossa. Mild thoracic spondylosis. IMPRESSION: 1. Atelectasis in the bilateral lower lobes. No pulmonary embolism or other acute cardiopulmonary dis ease. Reviewed, dictated and finalized at location A. EY OPERATIONS DIRECTOR IMPRESSION: 1. Atelectasis in the bilateral lower lobes. No pulmonary embolism or other acu te cardiopulmonary disease.
--- OUTSIDE RECORDS SUMMARY | 2025-01-16 01:23 | XMS_ITS | Encounter Summary ---
Author Organization [facility] Address [address] [place] [address] Care Team Providers Care Computer Artist Name Role Phone Yesica Stovall MD Primary Care Provider [phone]- [phone] Encounter Details Date Type Department Care Team (Late st Contact Info) Description 03/23/2019 Hospital Follow-up Call [facility] [place] [address] [place] [address] Teresa Coyne RN Social History Tobacco Use Types Packs/Day Years Used Date Smoking Tobacco: Never Smokeless Tobacco: Never Alcohol Use Standard Drinks/Week Comments No 0 (1 standard drink = 0.6 oz pur e alcohol) RARE Comments Yes Sex and Gender Information Value Date Recorded Sex Assigned at Female 03/15/2024 12:58 PM CDT Legal Sex Female 7:15 PM CDT Gender Identity Female 03/15/2024 12:58 PM CDT Sexual Orientation Not on file documented as of this encounter Functional Status * RETIRED Are you deaf or do you have serious difficulty hearing Answer Date of Assessment Author Status No 03/21/2019 11:35 PM CDT Acti ve * RETIRED Are you blind or do you have serious difficulty seeing, even when wearing glasses? Answer Date of Assessment Author Status No 03/21/2019 11:35 PM CDT Acti ve * Do you have serious difficulty walking or climbing stairs? Answer Date of Assessment Author Status No 03/21/2019 11:35 PM CDT Denisha Bautista RN Active * Do you have difficulty dressing or bathing? Answer Date of Assessment Author Status No 03/21/2019 11:35 PM CDT Denisha Bautista RN Active * Because of a physical, mental, or emotional condition, do you have difficulty doing errands alone such as visiting a doctor's office or shopping? Answer Date of Assessment Author Status No 03/21/2019 11:35 PM ALEXT Denisha Bautista RN Active documented as of this encounter Mental Status * Because of a physical, mental, or emotional condition, do you have serious difficulty concentrating, remembering, or making decisions? Answer Entry Date Author Status No 03/21/2019 11:35 PM CDT Denisha Bautista RN Active documented in this encounter Plan of Treatment Not on file documented as of this encounter Visit Diagnoses Not on filedocumented in this encounter Additional Health Concerns Infection Onset Date Last Indicated Resolved Time COVID-19 Rule Out 08/04/2021 08/04/2021 08/04/2021 5:58 AM CDT COVID-19 Rule Out 12/01/2021 12/01/2021 12/01/2021 4:03 PM COMMANDING OFFICER TRAFFIC DIVISION COVID-19 Confirmed 12/01/2021 12/01/2021 12:32 AM COMMANDING OFFICER TRAFFIC DIVISION COVID-19 Rule Out 04/29/2022 04/29/2022 04/29/2022 2:19 AM CDT documented as of this encounter Care Teams Computer Artist Relationship Specialty Start Date End Date Yesica Stovall MD PCP - General INTERNAL MEDICINE 01/23/18 documented as of this encounter
--- OUTSIDE RECORDS SUMMARY | 2025-01-16 01:23 | XMS_ITS | Clinical Summary ---
Author Organization [facility] Address [address] [place] [id number] Care Team Providers Care Filters Assembler Name Role Phone Yesica Stovall MD Primary [...] Department Care Team Description 10/17/2024 8:10 AM DONOR RELATIONS OFFICER - 10/17/2024 11:59 PM DONOR RELATIONS OFFICER Hospital Encounter [facility] [address] [place] [address] Lumbar pain Discharge Disposition: Discharge to home or self care 10/17/2024 8:00 AM DONOR RELATIONS OFFICER Office Visit [facility] Orthopedics and Sports Medicine [facility] [address] [place] [phone] Denise Wright, NAE Chronic right-sided low back pain with right-sided sciatica; Degeneration of intervertebral disc of lumbar region, mild L3-L4 with discogenic back pain and lower extremity pain; Myalgia, other site from Last 3 Months Immunizations Immunization Administration Dates Next Due Influenza, Quadrivalent, Rec [...] Comments Hypertension Father Mike Cancer Maternal Grandfather Bill Obesity Maternal Grandmother Gerri Alzheimer's disease Paternal [...] on file Legal Sex Female 8:59 PM DONOR RELATIONS OFFICER Gender Identity Female 02/08/2020 5:42 AM CDT [...] 108 kg (238 lb) 10/17/2024 8:04 AM DONOR RELATIONS OFFICER Height 170.2 cm (5' 7 ) 10/17/2024 8:04 AM DONOR RELATIONS OFFICER Body Mass Index 37.28 10/17/2024 8:04 AM DONOR RELATIONS OFFICER Plan of Treatment Health Maintenance Due Date [...] Read Routine (OP Routine) 10/17/2024 8:21 AM DONOR RELATIONS OFFICER Lumbar pain HI INJECTION SINGLE/DIAMOND SAW OPERATOR TRIGGER POINT 1/2 MUSCLES Routine 10/17/2024 8:00 AM DONOR RELATIONS OFFICER Myalgia, other site HI INJECTION SINGLE/DIAMOND SAW OPERATOR TRIGGER POINT 1/2 MUSCLES Routine 10/17/2024 8:00 AM DONOR RELATIONS OFFICER Myalgia, other site HM PAP SMEAR WITH HPV Routine 07/04/2019 from Last 3 Months or Most Recently Relevant to Health Maintenance Results * XR Spine Lumbar 2 or 3 Views (10/17/2024 8:21 AM DONOR RELATIONS OFFICER) Anatomical Region Laterality Modality Spine N/A Computed Radiogr aphy 10/18/2024 12:4 1 PM DONOR RELATIONS OFFICER Narrative 10/18/2024 12:42 PM DONOR RELATIONS OFFICER EXAM DESCRIPTION: XR SPINE LUMBAR 2 OR [...] by Alden Stevens M.D. T: Report ID: [id number] Reading Location: [id number] Procedure Note Alden Stevens MD - 10/18/2024 [...] by Alden Stevens M.D. T: Report ID: [id number] Reading Location: [id number] Denise Wright NP IMG XR PROCEDURES Final Res ult * HI INJECTION SINGLE/DIAMOND SAW OPERATOR TRIGGER POINT 1/2 MUSCLES (10/17/2024 8:00 AM DONOR RELATIONS OFFICER) Narrative Denise Wright NP - 10/17/2024 8:00 AM DONOR RELATIONS OFFICER Denise Wright NP 10/18/2024 1:20 PM Trigger [...] well with no immediate complications Denise Wright SENIOR CARE ASSISTANT IN CLINIC/BEDSIDE ORDERABLE S Final Result * HI INJECTION SINGLE/DIAMOND SAW OPERATOR TRIGGER POINT 1/2 MUSCLES (10/17/2024 8:00 AM DONOR RELATIONS OFFICER) Narrative Denise Wright NP - 10/17/2024 8:00 AM DONOR RELATIONS OFFICER Denise Wright NP 10/18/2024 1:20 PM Trigger [...] Most Recently Relevant to Health [place] [address] [place] [address] [place] [address] Care Teams Filters Assembler Relationship Specialty Start Date End Date Yesica Stovall MD PCP - General Internal Medicine 05/19/19
--- OUTSIDE RECORDS SUMMARY | 2025-01-16 01:23 | XMS_ITS | Clinical Summary ---
Author Organization [facility] Address [address] [place] [address] Care Team Providers Care Mergers And Acquisitions Associate Name Role Phone Yesica Stovall MD Primary Care Provider [phone]- [phone] Allergies Active Allergy Reactions Criticality Noted Date Comments Sulfamethoxazole-Trime thoprim Other (see comment) 10/01/2023 Nausea, stiff neck, Doxycycline Dizziness 04/21/2022 Penicillins Shortness of Breath High 01/23/2018 Patient has taken amoxicillin (02/15/19) and cephalexin (09/20/18) recently Promethazine Shortness of Breath,Tachycardia High 05/13/2019 Medications ketorolac (TORADOL) 10 MG tablet Take 10 mg by mouth every 6 (six) hours as needed. 2 Active triamcinolone (KENALOG) 0.1 % cream Apply topically 2 (two) times daily. 15 g 3 Active rizatriptan (MAXALT) 10 MG tablet Take 1 tablet (10 mg total) by mouth as needed for Migraine. May repeat in 2 hours if needed 30 tablet 5 Active Active Problems Problem Noted Date Diagnosed Date Previous section co mplicating , antepartum condition or complication (HHS/HCC) 06/10/2019 Polyhydramnios affecting pre gnancy in third trimester (HHS/HCC) 06/10/2019 Dizzinesses 05/13/2019 Assessment & Plan (05/13/2019 4:28 PM CDT): Relevant Hx: Pt was at work and felt dizzy and lightheaded and nauseous. She also was having some abdominal pain. She had eaten a bag of pretzels and drank 1 bottle of water all morning while she was at work. She also has oligohydraminos. Course: NST reassuring, pt ate, UA WNL Daily Update: Today's Plan: Pt encouraged to eat a healthy diet and increase hydration. She was given a meal while here and was feeling some better. Discharge home. Labor precautions reviewed. She was given betamethasone and Tdap. She will return in 24 hours for 2nd dose of betamethasone. Epigastric pain during , antepartum (HH S/HCC) 03/21/2019 Encounters Date Type Department Care Team Description 01/12/2025 7:44 AM ODD JOB LABORER - 01/12/2025 1:32 PM ODD JOB LABORER Emergency [facility] [place] [address] Deborah Salinas NP Headache Discharge Disposition: Home or Self Care (Routine Discharge) 01/12/2025 Travel from Last 3 Months Immunizations Name Administration Dates Next Due Tdap (Boostrix) 05/13/2019 Family History Medical History Relation Comments Hypertension Father No Known Problems Mother Relation Status Comments Brother Alive Father Alive Mother Alive Social History Tobacco Use Types Packs/Day Years Used Date Smoking Tobacco: Never Smokeless Tobacco: Never Alcohol Use Standard Drinks/Week Comments No 0 (1 standard drink = 0.6 oz pur e alcohol) RARE Comments No Sex and Gender Information Value Date Recorded Sex Assigned at Female 03/15/2024 12:58 PM CDT Legal Sex Female 7:15 PM CDT Gender Identity Female 03/15/2024 12:58 PM CDT Sexual Orientation Not on file Last Filed Vital Signs Vital Sign Reading Time Taken Comments Blood Pressure 120/82 01/12/2025 7:43 AM ODD JOB LABORER Pulse 97 01/12/2025 7:43 AM ODD JOB LABORER Temperature 36.3 C (97.4 F) 01/12/2025 7:43 AM ODD JOB LABORER Respiratory Rate 18 01/12/2025 7:43 AM ODD JOB LABORER Oxygen Saturation 99% 01/12/2025 7:43 AM ODD JOB LABORER Inhaled Oxygen Concentration - - Weight 107.3 kg (236 lb 8.9 oz) 01/12/2025 7:43 AM ODD JOB LABORER Height 170.2 cm (5' 7 ) 01/12/2025 7:43 AM ODD JOB LABORER Body Mass Index 37.05 01/12/2025 7:43 AM ODD JOB LABORER Plan of Treatment Health Maintenance Due Date Last Done Comments Cervical Cancer Screening Pa p Smear (Age 30 to 64) Every 3 Years 1986 Annual Physical 1989 Hepatitis C 2004 Hepatitis B Vaccines (1 of 3 - 19+ 3-dose series) 2005 Cervical Cancer Screening Pa p with HPV Testing (Age 30 to 64) Every 5 Years 2016 Cervical Cancer Screening wi th HPV 2016 COVID-19 Vaccine ( - 2023-2 5 season) 2024 Influenza Adult (#1) 2024 08/27/2020, 09/20/2018, 11/03/2014 DTaP, Tdap and Td Vaccines ( 2 - Td or Tdap) 05/13/2029 05/13/2019 HPV Vaccines Aged Out No longer eligi ble based on patient's age to complete this topic Meningococcal B Vaccine Aged Out No l onger eligible based on patient's age to complete this topic Meningococcal Vaccine Aged Out No jorge alberto emelina eligible based on patient's age to complete this topic Pneumococcal Vaccine: Pediatrics (0 to 5 Years) and At-Risk Patients (6 to 64 Years) Aged Out No longer eligible b ased on patient's age to complete this topic RSV Immunizations Under 20 Months Aged Out No longer eligible b ased on patient's age to complete this topic [place] [address] [place] [address] Advance Directives * Full Code (Latest Code Status on File) Date Activated Date Inactivated Comments 06/11/2019 12:52 AM 06/13/2019 8:05 PM * Full Code Date Activated Date Inactivated Comments 03/21/2019 7:29 PM 03/22/2019 11:37 PM Care Teams Mergers And Acquisitions Associate Relationship Specialty Start Date End Date Yesica Stovall MD PCP - General INTERNAL MEDICINE 01/23/18
--- OUTSIDE RECORDS SUMMARY | 2025-01-16 01:23 | XMS_ITS | Encounter Summary ---
Author Organization [facility] Address [address] [place] [address] Care Team Providers Care Systems Programmer Name Role Phone Yesica Stovall MD Primary Care Provider [phone]- [phone] Encounter Details Date Type Department Care Team (Late st Contact Info) Description 08/10/2021 Telephone [facility] Emergency Room [address] [place], [place] [id number] Emergency, Nurse, RN Social History Tobacco Use Types Packs/Day [...] PM CDT Sexual Orientation Not on file COVID-19 Exposure Response Date Recorded In the last month, have you been in contact with someone who was confirmed or suspected to have Coronavirus / COVID-19? No / Unsure 08/11/2021 2:03 PM CDT documented as of this encounter Functional Status * RETIRED Are you deaf or do you have serious difficulty hearing Answer Date of Assessment Author Status No 06/10/2019 8:41 PM CDT Activ e * RETIRED Are you blind or do you have serious difficulty seeing, even when wearing glasses? Answer Date of Assessment Author Status No 06/10/2019 8:41 PM CDT Activ e * Do you have serious difficulty walking or climbing stairs? Answer Date of Assessment Author Status No 06/10/2019 8:41 PM ALEXT Britt Lopez RN Active * Do you have difficulty dressing or bathing? Answer Date of Assessment Author Status No 06/10/2019 8:41 PM ALEXT Britt Lopez RN Active * Because of a physical, mental, or emotional condition, do you have difficulty doing errands alone such as visiting a doctor's office or shopping? Answer Date of Assessment Author Status No 06/10/2019 8:41 PM ALEXT Britt Lopez RN Active documented as of this encounter Mental Status * Because of a physical, mental, or emotional condition, do you have serious difficulty concentrating, remembering, or making decisions? Answer Entry Date Author Status No 06/10/2019 8:41 PM Britt Soto RN Active documented in this encounter Plan of Treatment Not on file documented as of this encounter Visit Diagnoses Not on filedocumented in this encounter Additional Health Concerns Infection Onset Date Last Indicated Resolved Time COVID-19 Rule Out 12/01/2021 12/01/2021 12/01/2021 4:03 PM JEWEL INSERTER COVID-19 Confirmed 12/01/2021 12/01/2021 12:32 AM JEWEL INSERTER COVID-19 Rule Out 04/29/2022 04/29/2022 04/29/2022 2:19 AM CDT documented as of this encounter Care Teams Systems Programmer Relationship Specialty Start Date End Date Yesica Stovall MD PCP - General INTERNAL MEDICINE 01/23/18 documented as of this encounter
--- OUTSIDE RECORDS SUMMARY | 2025-01-16 01:23 | XMS_ITS | Continuity of Care Document ---
Author Name [facility] Organization [facility] Care Team Providers Care Category Director Name Role Phone DOD-VA Unavailable Unavailable Problems [...] 20 yo female with past history of [place]. Clinic rapid strep negative with throat strep [...] PENICILLINS Drug allergy (disorder) Unknown active 05/19/2006 [facility] Stephen SIFUENTES ([facility]) Encounters Combined list of: 1) Encounters from Department of Veterans Affairs facilities going backup to the last 18 months, not all VA inpatient encounters are included; 2) Encounters from the Department of Defense facilities going backup to 280 months. Location Location Details Encounter Type Encounter Number Reason For Visit Attending Provider ADM Date DC Date Status Disposition Source [address] [place] [address] Stephen SIFUENTES ([facility])(Fam jorje Practice Non-GME FHI1) OUTPATIENT [id number] pain in both knees GONZALO GARCIA 10/03 Released w/o Limitations [address] [place] [address])(F amily Practic e Non-GME FHI1) [address] [place] [address])([facility] Non-GME F[facility]1) OUTPATIENT [id number] painful swelled tonsils x 3 days, diff to swallow JONNY SARABIA 01/01 Released w/o Limitations [address] [place] [address])(F amily Practic e Non-GME FHI1) [address] [place] [address])([facility] jorje Practice Non-GME FHI1) OUTPATIENT [id number] anemic JILLIAN JEFF 05/19 Released w/o Limitations [address] [place] [address])(F amily Practic e Non-GME FHI1) [address] [place] [address])([facility] Non-GME FHI1) OUTPATIENT [id number] left knee ROMERO ACKERMAN 08/23 Released w/o Limitations [address] [place] [address])(F amily Practic e Non-GME FHI1) [address] [place] [address])([facility] Non-GME FHI1) TELE CONSULT [id number] Radiolo gy results - RICHARD Sewell 08/[address] [place] [address])(F amily Practic e Non-GME FHI1) [address] [place] [address])([facility] Non-GME FHI1) OUTPATIENT [id number] throat MARRUFO, LUIS A 10/14 Released w/o Limitations [address] [place] [address])(F amily Practic e Non-GME FHI1) [address] [place] [address])([facility] jorje Practice Non-GME FHI1) OUTPATIENT [id number] flu like symptom s....[id number] JILLIAN JEFF 09/27 Released w/o Limitations [address] [place] [address])(F amily Practic e Non-GME FHI1) [address] [place] [address])([facility] Non-GME FHI1) OUTPATIENT [id number] f/u per Jono JILLIAN Bower 10/04 Released w/o Limitations [facility] Stephen LEEB ([facility])(F amily Practic e Non-GME FHI1) [address] [place] [address] Stephen LEEB ([facility])(Fam jorje Practice Non-GME FHI1) OUTPATIENT [id number] spider bite [id number] RANDEE JILLIAN Maddi 12/14 Released w/o Limitations [address] [place] [address] Stephen LEEB [facility]F amily Practic e Non-GME FHI1) [address] [place] [address] Stephen LEEB [facility]Fam jorje Practice Non-GME FHI1) OUTPATIENT [id number] poss strep ldl RANDEE JILLIAN L 01/04 Released w/o Limitations [facility] Stephen LEEB ([facility])(F amily Practic e Non-GME FHI1) [address] [place] [address] Stephen JESUSB [facility]Sco tt [facility] Fam Res Tm Red) OUTPATIENT [id number] has not felt well past two weeks, nausea eating/ fatigue MI BROWN 02/19 Released w/o Limitations [address] [place] [address] Stephen LEEB [facility]S [facility] Fam Res Tm Red) [address] [place] [address] Stephen JESUSB [facility]Sco tt [facility] Fam Res Tm Red) TELE CONSULT [id number] [facility] GONZALEZ Plata 02/[address] [place] [address] Stephen JESUSB [facility]S [facility] Fam Res Tm Red) [address] [place] [address] Stephen JESUSB [facility]Opt ometry) OUTPATIENT [id number] Routine exam [id number] JANENE RIVERS 04/05 Released w/o Limitations [address] [place] [address] Stephen JESUSB [facility]O ptometr y) [address] [place] [address] [employer] [facility]War rior Op Med Cln Tm A Ad) OUTPATIENT [id number] Tiffanie delgadillo s w/PAP [phone] MI BROWN 04/25 Released w/o Limitations [address] [place] [address] [employer] [facility]W arrior Op Med Cln Tm A Ad) Procedures Combined list of: 1) Procedures from Department of Veterans Affairs facilities [facility], not all [facility] non-surgical procedures are included; 2) All procedures from the Department of Defense facilities. Procedure Procedure Type Code Date Perfomer Comments Sour e INTRAVENOUS INFUSION, THERAPY/DIAGNOSIS, ADMINISTERED PHYSICIAN/UNDER DIRECT SUPERVISION, PHYSICIAN; EA ADDITIONAL HOUR, UP TO EIGHT (8) HOURS (LIST SEPARATELY ADDITION TO CODE, PRIMARY PROCEDURE) 5 [facility] SCREENING PAPANICOLAOU SMEAR; OBTAINING, PREPARING AND CONVEYANCE OF CERVICAL OR VAGINAL SMEAR TO LABORATORY 4 [facility] DETERMINATION OF REFRACTIVE STATE 9 [facility] INFECTIOUS AGENT ANTIGEN DETECTION BY IMMUNOASSAY WITH DIRECT OPTICAL (IE, VISUAL) OBSERVATION; STREPTOCOCCUS, GROUP A 9 [facility] WET KRISSY, INCLUDING PREPARATIONS OF VAGINAL, CERVICAL OR SKIN SPECIMENS 6 [facility] INFUSION, NORMAL SALINE SOLUTION , 1000 CC 6 [facility] SCREENING PAPANICOLAOU SMEAR; OBTAINING, PREPARING AND [...] LESIONS; UP TO 14 LESIONS 0 DoD Cervical Pap Smear Cervical Pap Smear [phone] MI BROWN [facility] Determination Of Refractive State Determination Of Refractive State [id number] [phone] JANENE RIVERS DoD Ophthalmological New Patient Start Comprehensive Care Ophthalmological New Patient Start Comprehensive Care [id number] [phone] JANENE RIVERS DoD Social History Combined list of available smoking, tobacco, and other social history from Department of Defense and Veterans Affairs facilities. Social History Type Response Date Comment [facility] e This section is an empty social history section. DoD
--- OUTSIDE RECORDS SUMMARY | 2025-01-16 01:23 | XMS_ITS | Encounter Summary ---
Author Organization [facility] Address [address] [place] [address] Care Team Providers Care Washer Meat Name Role Phone Yesica Stovall MD Primary Care Provider [phone]- [phone] Encounter Details Date Type Department Care Team (Late st Contact Info) Description 06/22/2019 Hospital Follow-up Call [facility] [place] [address] Freda Penaloza RN Social History Tobacco Use Types Packs/Day [...] Author Status No 06/10/2019 8:41 PM CDT Britt Lopez RN Active * Do you [...] Date Author Status No 06/10/2019 8:41 PM CDT Britt Lopez RN Active documented in this encounter Plan of Treatment Not on file documented as of this encounter Visit Diagnoses Not on filedocumented in this encounter Additional Health Concerns Infection Onset Date Last Indicated Resolved Time COVID-19 Rule Out 08/04/2021 08/04/2021 08/04/2021 5:58 AM CDT COVID-19 Rule Out 12/01/2021 12/01/2021 12/01/2021 4:03 PM CONFIGURATOR COVID-19 Confirmed 12/01/2021 12/01/2021 12:32 AM CONFIGURATOR COVID-19 Rule Out 04/29/2022 04/29/2022 04/29/2022 2:19 AM CDT documented as of this encounter Care Teams Washer Meat Relationship Specialty Start Date End Date Yesica Stovall MD PCP - General INTERNAL MEDICINE 01/23/18 documented as of this encounter
--- OUTSIDE RECORDS SUMMARY | 2025-01-16 01:23 | XMS_ITS | Referral Summary ---
Author Organization [facility] Address [address] [place] [id number] Care Team Providers Care Sporting Goods Salesperson Name Role Phone Yesica Stovall MD Primary Care Provider Encounters Date Type Department Care Team Description 10/17/2024 8:10 AM REAL ESTATE ASSET MANAGER - 10/17/2024 11:59 PM REAL ESTATE ASSET MANAGER Hospital Encounter [facility] [address] [place] [address] Lumbar pain Discharge Disposition: Discharge to home or self care 10/17/2024 8:00 AM REAL ESTATE ASSET MANAGER Office Visit [facility] Orthopedics and Sports Medicine [address] [place] [address] [place] [phone] Denise Wright, NAE Chronic right-sided low [...] (GDM) in third trimester 05/17/2019 11/14/2022 Immunizations Immunization Administration Dates Next Due Influenza, [...] on file Legal Sex Female 8:59 PM REAL ESTATE ASSET MANAGER Gender Identity Female 02/08/2020 5:42 AM CDT [...] 108 kg (238 lb) 10/17/2024 8:04 AM REAL ESTATE ASSET MANAGER Height 170.2 cm (5' 7 ) 10/17/2024 8:04 AM REAL ESTATE ASSET MANAGER Body Mass Index 37.28 10/17/2024 8:04 AM REAL ESTATE ASSET MANAGER Plan of Treatment Not on file Procedures Procedure Name Priority Date/Time Associated Diagnosis Comments XR SPINE LUMBAR 2 OR 3 VIEWS Schedule Routine, Read Routine (OP Routine) 10/17/2024 8:21 AM REAL ESTATE ASSET MANAGER Lumbar pain NH INJECTION SINGLE/SLAT BASKET TOP MAKER TRIGGER POINT 1/2 MUSCLES Routine 10/17/2024 8:00 AM REAL ESTATE ASSET MANAGER Myalgia, other site NH INJECTION SINGLE/SLAT BASKET TOP MAKER TRIGGER POINT 1/2 MUSCLES Routine 10/17/2024 8:00 AM REAL ESTATE ASSET MANAGER Myalgia, other site HM PAP SMEAR WITH HPV Routine 07/04/2019 from Last 3 Months or Most Recently Relevant to Health Maintenance Results * XR Spine Lumbar 2 or 3 Views (10/17/2024 8:21 AM REAL ESTATE ASSET MANAGER) Anatomical Region Laterality Modality Spine N/A Computed Radiogr aphy 10/18/2024 12:4 1 PM REAL ESTATE ASSET MANAGER Narrative 10/18/2024 12:42 PM REAL ESTATE ASSET MANAGER EXAM DESCRIPTION: XR SPINE LUMBAR 2 OR [...] by Alden Stevens M.D. T: Report ID: [id number] Reading Location: [id number] Procedure Note Alden Stevens MD - 10/18/2024 [...] by Alden Stevens M.D. T: Report ID: [id number] Reading Location: [id number] Denise Wright NP IMG XR PROCEDURES Final Res ult * NH INJECTION SINGLE/SLAT BASKET TOP MAKER TRIGGER POINT 1/2 MUSCLES (10/17/2024 8:00 AM REAL ESTATE ASSET MANAGER) Narrative Denise Wright NP - 10/17/2024 8:00 AM REAL ESTATE ASSET MANAGER Denise Wright NP 10/18/2024 1:20 PM Trigger Point Injection Performed by: Denise Wright NP Authorized by: Dneise Wright NP Consent Given by: Patient Site [...] IN CLINIC/BEDSIDE ORDERABLE S Final Result * NH INJECTION SINGLE/SLAT BASKET TOP MAKER TRIGGER POINT 1/2 MUSCLES (10/17/2024 8:00 AM REAL ESTATE ASSET MANAGER) Denise Foy NP - 10/17/2024 8:00 AM REAL ESTATE ASSET MANAGER Denise Wright NP 10/18/2024 1:20 PM Trigger [...] well with no immediate complications Denise Wright RECORD TESTER IN CLINIC/BEDSIDE ORDERABLE S Final Result * PAP SMEAR WITH HPV (07/04/2019) Pap smear Normal Historical Provider HEALTH MAINTENANCE Final Result from Last 3 Months or Most Recently Relevant to Health Maintenance Insurance [place] [email or web address] [facility] Care Teams Sporting Goods Salesperson Relationship Specialty Start Date End Date Yesica Stvoall MD PCP - General Internal Medicine 05/19/19
--- OUTSIDE RECORDS SUMMARY | 2025-01-16 01:23 | XMS_ITS | Encounter Summary ---
Author Organization [facility] Address [address] [place] [address] Care Team Providers Care Diabetes Education Coordinator Name Role Phone Yesica Stovall MD Primary Care Provider +1- [phone] Encounter Details Date Type Department Care Team (Late st Contact Info) Description 05/26/2024 [facility] Message [facility] Patient Accounts [address] [place] [address] [facility] Provider Action Required Social History Tobacco Use Types Packs/Day Years [...] Assessment Author Status No 06/10/2019 8:41 PM Britt Soto RN Active * Because of a physical, mental, or emotional condition, do you have difficulty doing errands alone such as visiting a doctor's office or shopping? Answer Date of Assessment Author Status No 06/10/2019 8:41 PM Britt Soto RN Active documented as of this encounter [...] Diagnoses Not on filedocumented in this encounter Care Teams Diabetes Education Coordinator Relationship Specialty Start Date End Date Yesica Stovall MD PCP - General INTERNAL MEDICINE 01/23/18 documented as of this encounter
--- OUTSIDE RECORDS SUMMARY | 2025-01-16 01:24 | XMS_ITS | Referral Summary ---
Author Organization [facility] Address [address] [place] [address] Care Team Providers Care Filer Helper Name Role Phone Unavailable Primary Care Provider Unavailabl e Source Comments [facility],non-owned Affiliates and Associated Physician Practices is amultiple site organization consisting of ambulatory clinics and hospital sitesin [place], [place], [place] and [place]. This disclosure is being madepursuant to the Care Everywhere program and may not contain all information available regarding this patient. Last updated 18.[facility] Allergies Active Allergy Reactions Criticality Noted Date [...]
--- OUTSIDE RECORDS SUMMARY | 2025-01-16 01:24 | XMS_ITS | Clinical Summary ---
Author Organization [facility] Address [address] [facility] [place] [address] Care Team Providers Care Field Cashier Name Role Phone Unavailable Primary Care Provider Unavailabl e Source Comments [facility],non-owned Affiliates and Associated Physician Practices is amultiple site organization consisting of ambulatory clinics and hospital sitesin [place], [place], [place] and [place]. This disclosure is being madepursuant to the Care Everywhere program and may not contain all information available regarding this patient. Last updated 18.[facility] Allergies Active Allergy Reactions Criticality Noted Date [...]
--- OUTSIDE RECORDS SUMMARY | 2025-01-16 01:24 | XMS_ITS | Encounter Summary ---
Author Organization [facility] Address [address] [place] [address] Care Team Providers Care Transit Planning Director Name Role Phone Yesica Stovall MD Primary Care Provider +1- [phone] Encounter Details Date Type Department Care Team (Late st Contact Info) Description 04/01/2024 [facility] [address] [place] [phone] Nicole, [facility] Provider Action Needed Social History Tobacco Use Types Packs/Day Years [...] Assessment Author Status No 06/10/2019 8:41 PM Birtt Soto RN Active * Because of a [...] on filedocumented in this encounter Care Teams Transit Planning Director Relationship Specialty Start Date End Date Yesica Stovall MD PCP - General INTERNAL MEDICINE 01/23/18 documented as of this encounter
--- OUTSIDE RECORDS SUMMARY | 2025-01-16 01:24 | XMS_ITS | Patient Health Summary ---
Author Organization [facility] [employer] Address [address] [facility] [place] [address] Care Team Providers Care Basting Marker Name Role Phone Unavailable Primary Care Provider Unavailabl e Note from [facility] [employer],non-owned Affiliates and Associated Physician Practices is amultiple site organization consisting of ambulatory clinics and hospital sitesin [place], [place] and [place]. This disclosure is being madepursuant to the Care Everywhere program and may not contain all information available regarding this patient. Last updated 18.[facility] [employer] Allergies * Penicillins(Shortness of Breath) -High Criticality [...] PHONE: FAX: Pat. Name: KSENIA RIOS. No: [id number] Study Date: 06/09/2019 3:58pm , Age: 06 1985, 35 Pregnancies: 4, Para 2, Ab 1 Height: 67 in Weight: 225 lb LMP: 09/10/2018 GA by LMP: 38w6d GA by Base: 38w1d KARRIE: 06/22/2019 GA by US: 37w6d KARRIE: 06/24/2019 GA Selected: 38w1d (From [facility]) KARRIE: 06/22/2019 Referring MD: Columba Traylor MD Lube Man: Freda Valle, [facility], RD CPT4: 85019,61079 BMI: 35.24 Hist/Ind: Polyhydramnios on outside scan (43 cm) LGA GDM Class II Obesity MEASUREMENTS & AGE GROWTH EVALUATION Measurement GA Range Srce %for GA Ratios ----- ---- ------- BPD 10.4 cm Hadl BPD FL/BPD 0.71 (0.71 - 0.87) HC 36.9 cm Hadl HC FL/AC 0.19 (0.20 - 0.24* AC 40.0 cm Hadl AC HC/AC 0.92 (0.90 - 1.09) FL 7.4 cm 37w6d (97a5i-31q6u) Hadl FL 48% CI 0.80 (0.70 - 0.86) HL 6.3 cm 36w4d (47y5c-66e1l) Griffin HL 24% GA for sonogram 37w6d (44e5n-58x1i) Weight Estimate: based on (FL) Avg Weight: [...] <Electronic Signature> 06/09/2019 04:35pm Ab Patrick MD [facility] ORDERABLES * SONOGRAM - COMPLETE (05/17/2019 8:57 AM CDT) Only the most recent of2 resultswithin the time period is included. Anatomical Region Laterality Modality Other 05/17/2019 8:57 AM CDT Narrative 05/17/2019 10:26 AM CDT [facility] PHONE: FAX: Pat. Name: KSENIA RIOS Pat. No: [id number] Study Date: 05/17/2019 8:57am , Age: 06 1985, 34 Pregnancies: 4, Para 2, Ab 1 Height: 67 in Weight: 225 lb LMP: 09/10/2018 GA by LMP: 35w4d GA by Base: 34w6d KARRIE: 06/22/2019 GA Selected: 34w6d (From [facility]) KARRIE: 06/22/2019 Referring MD: Columba Traylor MD Lube Man: Quita Ferrera CPT4: 24765,89171 BMI: 35.24 Hist/Ind: Polyhydramnios on outside scan [...]
--- OUTSIDE RECORDS SUMMARY | 2025-01-16 01:24 | XMS_ITS | Data Portability ---
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 Plan of Treatment Reminders Order Date Submit Date Provider Last Modified By Organization Details Last Modified Time Details Appointments None recorded . Lab beta-HCG , quantita tive, serum or plasma 022 12/20/19 DIVERNON [facility], [address] [place], [address], 06:10:40 Referral None recorded . Procedures None recorded . Surgeries None recorded . Imaging None recorded . Medication Orders None recorded . Patient TargetsNo targets recorded. Patient InstructionsNo instructions recorded. Reason for Referral None Reported. Results Created Date Observation Date Name Description Value Unit Range Abnormal Flag Note LastModifiedBy Organization Detail LastModifiedTime 12/20/19 22 12/21/2021 HCG, TOTAL , QN HCG, total, qn <3 mIU/m L normal Refer ence Range Nonpr egnan t or preme nopau manan <5 Postm enopa usal <10 Value s from diffe rent assay metho ds may vary. The use of this assay to monit or or to diagn ose patie nts with cance r or any condi tion unrel ated to pregn chang has not been clear ed or appro varinder by the FDA or the [facility] actur er of the assay . Not Available [facility] [id number], [place], [address], 12/21/2021 06:10:40 Result Notes None recorded. Problems Name Problem SNOMED Code Status Onset Date Resolution Date Notes Provider Name and Address Organization Details Recorded Time Uterine size for dates discrepa ncy Completed 201807/27/2019 Uterine size-cristina e discrepa ncy, third trimeste r; Progress : Stable Added By: Daniel Carpenter Add to Current Problems : NO ProblemS tatus: Resolve Not Available [facility] 2 19:10:54 Uses contrace ption [id number] Completed 201611/28/2017 Visit for counseli ng and contrace ption advice; other; Location : None Severity : Moderate Progress : Stable Added By: Cassidy Traylor Add to Current Problems : YES ProblemS tatus: Resolve Not Available [facility] 1 04:22:44 Acute sinusiti s [id number] Completed 201211/21/2013 Sinusiti s; Location : None Progress : Stable Added By: Robyn Frederick Add to Current Problems : NO ProblemS tatus: Resolve Sinusiti s; Location : None Progress : Stable Added By: Robyn Frederick Add to Current Problems : NO ProblemS tatus: Resolve; Start Date : 09/06/20 13 Not Available [facility] 2 19:11:06 Dysfunct ional uterine bleeding Completed 201404/06/2016 Abnormal uterine bleeding , NEC; Progress : Stable Added By: Mercedes Joshua Add to Current Problems : NO ProblemS tatus: Resolve Not Available [facility] 2 19:10:51 Vaginiti s and vulvovag initis Completed 201209/13/2013 Bacteria l vaginosi s; Progress : Stable Added By: Evy Lopez Add to Current Problems : NO ProblemS tatus: Resolve Not Available [facility] 2 19:11:01 Dizzines s [id number] Active 2014 Dizzines s; Location : None Progress : Stable Added By: Pauline Dyer Add to Current Problems : NO ProblemS tatus: Current Not Available [facility] 2 19:10:52 Past pregnanc y history of gestatio nal diabetes mellitus [id number] Completed 201809/07/2020 Personal history of gestatio nal diabetes ; Progress : Stable Added By: Sandra Muse Add to Current Problems : NO ProblemS tatus: Resolve Not Available [facility] 2 19:11:13 Lesion of ovary Active 2020 Other ovarian cyst, left side; Progress : Stable Added By: Nery Morocho Add to Current Problems : YES ProblemS tatus: Current Not Available [facility] 2 19:10:54 Disorder of pregnanc y Completed 201807/27/2019 Polyhydr amnios, third trimeste r, not applicab le or unspecif ied; Progress : Stable Added By: Daniel Carpenter Add to Current Problems : NO ProblemS tatus: Resolve Not Available [facility] 2 19:10:57 Educatio n Completed 201607/27/2019 Encounte r for other general counseli ng and advice on contrace ption; Progress : Stable Added By: Cassidy Traylor Add to Current Problems : NO ProblemS tatus: Resolve Not Available [facility] 2 19:10:51 Missed miscarri age [id number] Completed 201611/30/2017 Miscarri age before 22 weeks gestatio n; Progress : Stable Added By: Remedios Garcia Add to Current Problems : NO ProblemS tatus: Resolve; Start Date : 09/24/20 17 Misse d ; Location : None Progress : Stable Added By: Maddi Martinez Add to Current Problems : YES ProblemS tatus: Resolve Not Available [facility] 2 19:11:07 Nausea and vomiting [id number] Completed 201406/06/2015 Nausea with vomiting ; Location : None Progress : Stable Added By: Masha Okeefe Add to Current Problems : NO ProblemS tatus: Resolve Nausea with vomiting ; Location : None Progress : Stable Added By: Masha Okeefe Add to Current Problems : NO ProblemS tatus: Resolve; Start Date : 11/03/20 14 Not Available [facility] 2 19:10:55 Dizzines s and giddines s [id number] Completed 201411/25/2018 Dizzines s; Progress : Stable Added By: Pauline Dyer Add to Current Problems : NO ProblemS tatus: Resolve Not Available [facility] 2 19:10:52 Breast lump [id number] Completed 201511/25/2018 Breast mass; Progress : Stable Added By: Svetlana Henriquez Add to Current Problems : NO ProblemS tatus: Resolve Unspecif ied lump in breast; Progress : Stable Added By: Svetlana Henriquez Add to Current Problems : NO ProblemS tatus: Resolve Breast mass; Location : None Progress : Stable Added By: Svetlana Henriquez Add to Current Problems : YES ProblemS tatus: Current Not Available [facility] 2 19:11:[address] Concept Completed 201807/27/2019 Supervis ion of other high risk pregnanc ies, third trimeste r; Progress : Stable Added By: Veena Cole Add to Current Problems : NO ProblemS tatus: Resolve Not Available [facility] 2 19:11:05 Low back pain [id number] Completed 201807/27/2019 Low back pain; Progress : Stable Added By: Remedios Garcia Add to Current Problems : NO ProblemS tatus: Resolve Not Available [facility] 2 19:10:54 Gestatio n period, 28 weeks [id number] Completed 201807/27/2019 28 weeks gestatio n of pregnanc y; Progress : Stable Added By: Ashlyn Reynolds Add to Current Problems : NO ProblemS tatus: Resolve Not Available [facility] 2 19:11:09 Dispropo rtion between fetus and pelvis Completed 201406/06/2015 Back pain, in pregnanc y; Location : None Progress : Stable Added By: Joan De La Paz Add to Current Problems : YES ProblemS tatus: Resolve Back pain, in pregnanc y; Location : None Progress : Stable Added By: Masha Okeefe Add to Current Problems : NO ProblemS tatus: Resolve; Start Date : 02/17/20 15 Not Available [facility] 2 19:10:50 Inflamma tory disorder of breast 831657107 Completed 201205/08/2014 Mastitis ; Progress : Stable Added By: Blanche Fry Add to Current Problems : NO ProblemS tatus: Resolve Not Available [facility] 2 19:11:07 Gestatio n period, 37 weeks [id number] Completed 201807/27/2019 37 weeks gestatio n of pregnanc y; Progress : Stable Added By: Veena Cole Add to Current Problems : NO ProblemS tatus: Resolve Not Available [facility] 2 19:11:00 Lump in lower outer quadrant of right breast [id number] 4103 Completed 201902/08/2021 Unspecif ied lump in the right breast, lower outer quadrant ; Progress : Stable Added By: Deb Samano Add to Current Problems : NO ProblemS tatus: Resolve Not Available [facility] 2 21:24:07 Gestatio n period, 26 weeks 79333986 Completed 201807/27/2019 26 weeks gestatio n of pregnanc y; Progress : Stable Added By: Lillian Samano Add to Current Problems : NO ProblemS tatus: Resolve Not Available [facility] 2 21:24:08 Gestatio n period, 31 weeks 29101975 Completed 201807/27/2019 31 weeks gestatio n of pregnanc y; Progress : Stable Added By: Remedios Garcia Add to Current Problems : NO ProblemS tatus: Resolve Not Available [facility] 2 19:11:13 Gestatio n period, 30 weeks [id number] Completed 201807/27/2019 30 weeks gestatio n of pregnanc y; Progress : Stable Added By: Sherin Rose Add to Current Problems : NO ProblemS tatus: Resolve Not Available [facility] 2 19:11:08 Gestatio n period, 14 weeks [id number] Completed 201807/27/2019 14 weeks gestatio n of pregnanc y; Progress : Stable Added By: Aleah Paul Add to Current Problems : NO ProblemS tatus: Resolve Not Available [facility] 2 19:11:08 Gestatio n period, 33 weeks [id number] Completed 201807/27/2019 33 weeks gestatio n of pregnanc y; Progress : Stable Added By: Remedios Garcia Add to Current Problems : NO ProblemS tatus: Resolve Not Available [facility] 2 19:11:01 Family planning educatio n done [id number] 9104 Completed 201409/27/2015 Family planning advice; Location : None Severity : Moderate Progress : Stable Added By: Masha Okeefe Add to Current Problems : YES ProblemS tatus: Resolve Not Available [facility] 05:43:47 Surgical follow-u p - normal [id number] Completed 201406/06/2015 Follow-u p exam followin g surgery; Location : None Severity : Moderate Progress : Stable Added By: Pauline Dyer Add to Current Problems : YES ProblemS tatus: Resolve Not Available [facility] 1 05:43:48 Abdomina l pain 34878556 Completed 201306/06/2015 Abdomina l pain, unspecif ied; Location : None Progress : Stable Added By: Masha Okeefe Add to Current Problems : NO ProblemS tatus: Resolve Not Available [facility] 2 19:11:11 Syncope and collapse [id number] Completed 201306/06/2015 Syncope; Location : None Progress : Stable Added By: Masha Okeefe Add to Current Problems : NO ProblemS tatus: Resolve Not Available [facility] 2 19:10:58 Abnormal products of concepti on Completed 201609/07/2020 Miscarri age before 22 weeks gestatio n; Location : None Progress : Stable Added By: Remedios Garcia Add to Current Problems : YES ProblemS tatus: Current Other abnormal products of concepti on; Progress : Stable Added By: Remedios Garcia Add to Current Problems : NO ProblemS tatus: Resolve Not Available [facility] 2 19:11:12 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 Completed 201909/07/2020 Other specifie d noninfla mmatory disorder s of vulva and perineum ; Progress : Stable Added By: Oralia Morel Add to Current Problems : NO ProblemS tatus: Resolve Not Available [facility] 2 19:10:53 Procedur e on genitour inary system Completed 201807/27/2019 Encounte r for surgical aftercar e followin g surgery on the genitour inary system; Progress : Stable Added By: Remedios Garcia Add to Current Problems : NO ProblemS tatus: Resolve Not Available [facility] 2 21:24:06 Postoper ative care Completed 201807/27/2019 Encounte r for surgical aftercar e followin g surgery on the genitour inary system; Progress : Stable Added By: Remedios Garcia Add to Current Problems : NO ProblemS tatus: Resolve Not Available [facility] 2 21:24:06 Joann theodore [id number] Completed 201211/21/2013 Pregnanc y 1st Normal; Location : None Progress : Stable Added By: Evy Lopez Add to Current Problems : NO ProblemS tatus: Resolve Pregnanc y 1st Normal; Location : None Progress : Stable Added By: Evy Lopez Add to Current Problems : NO ProblemS tatus: Resolve; Start Date : 09/20/20 13 Pregn chang 1st Normal; Location : None Progress : Stable Added By: Robyn Frederick Add to Current Problems : NO ProblemS tatus: Resolve; Start Date : 09/13/20 13 Pregn chang 1st Normal; Location : None Progress : Stable Added By: Robyn Frederick Add to Current Problems : NO ProblemS tatus: Resolve; Start Date : 09/06/20 13 Pregn chang 1st Normal; Location : None Progress : Stable Added By: Evy Lopez Add to Current Problems : NO ProblemS tatus: Resolve; Start Date : 08/23/20 13 Pregn chang 1st Normal; Location : None Progress : Stable Added By: Evy Lopez Add to Current Problems : NO ProblemS tatus: Resolve; Start Date : 08/09/20 13 Pregn chang 1st Normal; Location : None Progress : Stable Added By: Valente Reyes Add to Current Problems : NO ProblemS tatus: Resolve; Start Date : 07/26/20 13 Pregn chang 1st Normal; Location : None Progress : Stable Added By: Evy Lopez Add to Current Problems : NO ProblemS tatus: Resolve; Start Date : 07/12/20 13 Pregn chang 1st Normal; Location : None Progress : Stable Added By: Evy Lopez Add to Current Problems : NO ProblemS tatus: Resolve; Start Date : 06/21/20 13 Pregn chang 1st Normal; Location : None Progress : Stable Added By: Mary Covarrubias Add to Current Problems : NO ProblemS tatus: Resolve; Start Date : 05/24/20 13 Not Available [facility] 2 19:11:13 Gestatio n period, 34 weeks [id number] Completed 201807/27/2019 34 weeks gestatio n of pregnanc y; Progress : Stable Added By: Arvind Doss Add to Current Problems : NO ProblemS tatus: Resolve Not Available [facility] 2 19:11:06 Akilah ry postpart um mood disturba nce [id number] Completed 201809/07/2020 Postpart um mood disturba nce; Progress : Stable Added By: Sandra Muse Add to Current Problems : NO ProblemS tatus: Resolve Not Available [facility] 2 19:11:00 Normal pregnanc y in multigra ewelina [id number] 4106 Completed 201807/27/2019 Encounte r for supervis ion of other normal pregnanc y, first trimeste r; Progress : Stable Added By: Aleah Paul Add to Current Problems : NO ProblemS tatus: Resolve; Start Date : 10/28/20 18 Encou nter for supervis ion of other normal pregnanc y, second trimeste r; Progress : Stable Added By: Lillian Samano Add to Current Problems : NO ProblemS tatus: Resolve; Start Date : 12/23/19 19 Encou nter for supervis ion of other normal pregnanc y, third trimeste r; Progress : Stable Added By: Remedios Garcia Add to Current Problems : NO ProblemS tatus: Resolve Not Available [facility] 2 21:24:07 Adjustme nt disorder with depresse d mood 51348148 Completed 201406/06/2015 Situatio nal depressi ve reaction ; Progress : Stable Added By: Alden Armstrong Add to Current Problems : NO ProblemS tatus: Resolve Not Available [facility] 2 19:10:53 Gestatio n period, 36 weeks [id number] Completed 201807/27/2019 36 weeks gestatio n of pregnanc y; Progress : Stable Added By: Remedios Garcia Add to Current Problems : NO ProblemS tatus: Resolve Not Available [facility] 2 19:10:53 Procedur e related to breastfe eding Completed 201809/07/2020 Encounte r for care and examinat ion of lactatin g mother; Progress : Stable Added By: Sandra Muse Add to Current Problems : NO ProblemS tatus: Resolve Not Available [facility] 2 21:24:05 Lochia finding Completed 201809/07/2020 Encounte r for routine postpart um follow-u p; Progress : Stable Added By: Sandra Muse Add to Current Problems : NO ProblemS tatus: Resolve Not Available [facility] 2 19:10:51 Excessiv e growth affectin g manageme nt of mother [id number] Completed 201211/21/2013 Large for dates; Location : None Added By: Evy Lopez Add to Current Problems : NO ProblemS tatus: Resolve Large for dates; Location : None Added By: Evy Lopez Add to Current Problems : NO ProblemS tatus: Resolve; Start Date : 09/20/20 13 Large for dates; Location : None Added By: Britt Moreira Add to Current Problems : NO ProblemS tatus: Resolve; Start Date : 09/08/20 13 Not Available [facility] 2 19:11:07 Gestatio n period, 20 weeks [id number] Completed 201807/27/2019 20 weeks gestatio n of pregnanc y; Progress : Stable Added By: Smitha Madrigal Add to Current Problems : NO ProblemS tatus: Resolve Not Available [facility] 2 19:11:12 Gestatio n period, 24 weeks 161931401 Completed 201807/27/2019 24 weeks gestatio n of pregnanc y; Progress : Stable Added By: Lillian Samano Add to Current Problems : NO ProblemS tatus: Resolve Not Available [facility] 2 19:10:52 Gestatio n period, 10 weeks 25372360 Completed 201712/23/2018 10 weeks gestatio n of pregnanc y; Progress : Stable Added By: Aleah Paul Add to Current Problems : NO ProblemS tatus: Resolve Not Available [facility] 2 19:11:12 Gestatio n period, 29 weeks [id number] Completed 201807/27/2019 29 weeks gestatio n of pregnanc y; Progress : Stable Added By: Smitha Madrigal Add to Current Problems : NO ProblemS tatus: Resolve Not Available [facility] 2 19:10:52 Disorder of pregnanc y Completed 201807/27/2019 Polyhydr amnios, third trimeste r, fetus 1; Progress : Stable Added By: Veena Cole Add to Current Problems : NO ProblemS tatus: Resolve Not Available [facility] 2 19:10:55 Gestatio n period, 8 weeks 16245151 Completed 201712/23/2018 8 weeks gestatio n of pregnanc y; Progress : Stable Added By: Smitha Madrigal Add to Current Problems : NO ProblemS tatus: Resolve Not Available [facility] 2 21:24:06 Threaten ed miscarri age [id number] Completed 201611/25/2018 , Threaten ed; Progress : Stable Added By: Mary Bradford Add to Current Problems : NO ProblemS tatus: Resolve Threaten ed ; Location : None Progress : Stable Added By: Nelly Kim Add to Current Problems : YES ProblemS tatus: Current; Start Date : 09/16/20 17 Threa tened ; Progress : Stable Added By: Mary Bradford Add to Current Problems : NO ProblemS tatus: Resolve , Threaten ed; Location : None Progress : Stable Added By: Mary Bradfrod Add to Current Problems : YES ProblemS tatus: Current Not Available [facility] 2 21:24:05 Gestatio n period, 32 weeks [id number] Completed 201807/27/2019 32 weeks gestatio n of pregnanc y; Progress : Stable Added By: Remedios Garcia Add to Current Problems : NO ProblemS tatus: Resolve Not Available [facility] 2 19:11:08 Gestatio n period, 35 weeks [id number] Completed 201807/27/2019 35 weeks gestatio n of pregnanc y; Progress : Stable Added By: Briana Sky Add to Current Problems : NO ProblemS tatus: Resolve Not Available [facility] 2 19:10:58 Antenata l screenin g for malforma tion Completed 201807/27/2019 Encounte r for antenata l screenin g for malforma tions; Progress : Stable Added By: Lillian Samano Add to Current Problems : NO ProblemS tatus: Resolve Not Available [facility] 2 19:11:00 Venereal disease screenin g Completed 201207/12/2013 Screenin g for STDs; Progress : Stable Added By: Mary Covarrubias Add to Current Problems : NO ProblemS tatus: Resolve Not Available [facility] 2 19:11:01 Antenata l screenin g Completed 201707/27/2019 Antenata l screenin g; unspecif ied; Location : None Progress : Stable Added By: Mary Covarrubias Add to Current Problems : NO ProblemS tatus: Resolve; Start Date : 05/24/20 13 Encou nter for other specifie d antenata l screenin g; Progress : Stable Added By: Veena Cole Add to Current Problems : NO ProblemS tatus: Resolve Not Available [facility] 2 19:11:01 Postpart um care Completed 201403/07/2016 Visit for routine postpart um follow-u p; Location : None Progress : Stable Added By: Bianka Horner Add to Current Problems : YES ProblemS tatus: Resolve Visit for routine postpart um follow-u p; Location : None Progress : Stable Added By: Emma Moore Add to Current Problems : NO ProblemS tatus: Resolve; Start Date : 12/02/19 14 Not Available [facility] 2 19:11:05 Routine antenata l care Completed 201406/06/2015 Pregnanc y; Location : None Progress : Stable Added By: Flor Martinez Add to Current Problems : NO ProblemS tatus: Resolve Pregnanc y; Location : None Progress : Stable Added By: Yuly Keys Add to Current Problems : NO ProblemS tatus: Resolve; Start Date : 04/11/20 15 Pregn chang; Location : None Progress : Stable Added By: Yuly Keys Add to Current Problems : NO ProblemS tatus: Resolve; Start Date : 04/04/20 15 Pregn chang; Location : None Progress : Stable Added By: Yuly Keys Add to Current Problems : NO ProblemS tatus: Resolve; Start Date : 03/28/20 15 Pregn chang; Location : None Progress : Stable Added By: Yuly Keys Add to Current Problems : NO ProblemS tatus: Resolve; Start Date : 03/14/20 15 Pregn chang; Location : None Progress : Stable Added By: Flor Martinez Add to Current Problems : NO ProblemS tatus: Resolve; Start Date : 02/29/20 15 Pregn chang; Location : None Progress : Stable Added By: Masha Okeefe Add to Current Problems : NO ProblemS tatus: Resolve; Start Date : 02/17/20 15 Pregn chang; Location : None Progress : Stable Added By: Yuly Keys Add to Current Problems : NO ProblemS tatus: Resolve; Start Date : 02/09/20 15 Pregn chang; Location : None Progress : Stable Added By: Masha Okeefe Add to Current Problems : NO ProblemS tatus: Resolve; Start Date : 01/23/20 15 Pregn chang; Location : None Progress : Stable Added By: Evy Lopez Add to Current Problems : NO ProblemS tatus: Resolve; Start Date : 01/03/20 15 Pregn chang; Location : None Progress : Stable Added By: Masha Okeefe Add to Current Problems : NO ProblemS tatus: Resolve; Start Date : 11/22/20 14 Pregn chang; Location : None Progress : Stable Added By: Bianka Horner Add to Current Problems : NO ProblemS tatus: Resolve; Start Date : 11/09/20 14 Pregn chang; Location : None Progress : Stable Added By: Masha Okeefe Add to Current Problems : NO ProblemS tatus: Resolve; Start Date : 11/03/20 14 Pregn chang; Location : None Progress : Stable Added By: Masha Okeefe Add to Current Problems : NO ProblemS tatus: Resolve; Start Date : 10/11/20 14 Pregn chang; Location : None Progress : Stable Added By: Flor Martinez Add to Current Problems : NO ProblemS tatus: Resolve; Start Date : 10/03/20 14 Pregn chang; Location : None Progress : Stable Added By: Evy Lopez Add to Current Problems : NO ProblemS tatus: Resolve; Start Date : 09/15/20 14 Not Available [facility] 2 19:11:06 Notes:Visit for counseling a nd contraception advice; other (V25.09) ; OnsetDate: 09/29/2017; ResolvedDate: 11/28/2017; Progress: Stable Added By: Colmuba Traylor Add to Current Problems: NO ProblemStatus: Resolve Family planning advice (V25.09) ; OnsetDate: 07/29/2015; ResolvedDate: 09/27/2015; Location: None Progress: Stable Added By: Masha Okeefe Add to Current Problems: YES ProblemStatus: Resolve Follow-up exam following surgery (V67.09) ; OnsetDate: 05/08/2015; ResolvedDate: 06/06/2015; Progress: Stable Added By: Pauline yDer Add to Current Problems: NO ProblemStatus: Resolve Encounter for anatomic survey (V28.81) ; OnsetDate: 12/07/2014; ResolvedDate: 06/06/2015; Progress: Stable Added By: Britt Moreira Add to Current Problems: NO ProblemStatus: Resolve Family planning advice (V25.09) ; OnsetDate: 05/09/2014; ResolvedDate: 09/15/2014; Location: None Progress: Stable Added By: Masha Okeefe Add to Current Problems: NO ProblemStatus: Resolve screening; unspecified (V28.9) ; OnsetDate: 05/24/2013; ResolvedDate: 06/06/2015; Progress: Stable Added By: Sussy Womack Add to Current Problems: NO ProblemStatus: Resolve Problem Notes None recorded. Procedures Surgical History Date Name Laterality Status Provider Name and Address Organization Details Recorded Time 019 laparoscopic cholecystectomy completed [facility] 12/20/2021 11:30:28 section completed [facility] 12/20/2021 11:30:13 Imaging Results None recorded. Procedure Notes None recorded. Medical Equipment None Reported. Allergies Allergen ID Allergen Name Allergen Category Reaction Reaction Severity Criticality Documentation Date Start Date Code Code System Note Provider Name and Address Organization Details Recorded Time 535677 Phenergan medicatio n Not available Not available Not available 09/20/20212018 67017 8 RxNorm Sever ity: Moder ate; Not Available Not Available Not Available 601442 Product containin g penicilli n (product) medicatio n Not available Not available Not available 09/20/20212012 27001 8001 SNOMED Sever ity: Moder ate; Not Available Not Available Not Available Medications Name Sig Start Date Stop Date Status Note LastModified by Organization Details LastModified Time amoxicill in 500 mg capsule Take 1 capsule by mouth twice daily for 10 days 09/26 completed Amoxicil omer 500mg Capsules RxNorm: 702458 Allow Substitu tion: True Refill Denied: No Not Available Not Available Not Available dicloxaci llin 500 mg capsule take 1 capsule (500 mg) by oral route every 12 hours for 10 days active dicloxac illin 500 mg oral capsule RxNorm: 954575 Allow Substitu tion: True Refill Denied: No Edited by: patricio(R eyes, Monika ) on 09/20/20 20 Stopped by: patricio(Jair eyesMonika ) on Not Available Not Available Not Available doxycycli ne hyclate 100 mg capsule 12/20 completed Not Available Not Available Not Available azithromy mary jo 250 mg tablet TAKE 2 TABLETS BY MOUTH FOR 1 DAY THEN TAKE 1 TABLET BY MOUTH DAILY FOR 4 DAYS 12/20 completed Not Available Not Available Not Available meloxicam 15 mg tablet take 1 tablet (15 mg) by oral route once daily 12/20 completed meloxica m 15 mg oral tablet RxNorm: 306494 Allow Substitu tion: False Refill Denied: No Refill DateOccu rred: 02/09/20 Edited by: Nery Raphael ) on 03/22/20 Stopped by: Nery Raphael ) on Not Available Not Available Not Available promethaz ine 12.5 mg tablet Take 1-2 tablets PO every 4 hours as needed for nausea 02/23 completed Prometha zine HCl 12.5mg Tablet RxNorm: 549381 Allow Substitu tion: True Refill Denied: No Not Available Not Available Not Available pyridoxin e (vitamin B6) 25 mg tablet 1 tab PO TID for nausea 03/25 completed Pyridoxi ne HCl 25mg Tablet RxNorm: 5909343 Allow Substitu tion: True Refill Denied: No Not Available Not Available Not Available bacitraci n 500 unit/gram topical ointment Apply small amount of ointment twice daily as needed 02/08 completed bacitrac in 500 unit/gra m Topical Ointment RxNorm: 1216943 Allow Substitu tion: True Refill Denied: No Edited by: alyssa(Deb Redman ) on 02/09/20 Stopped by: alyssa(Deb Redman ) on 02/09/20 Not Available Not Available Not Available metronida zole 500 mg tablet Take 1 tablet(s ) by mouth bid for 7 days 08/21 completed Metronid azole 500mg Tablet RxNorm: 778293 Allow Substitu tion: True Refill Denied: No Not Available Not Available Not Available acetamino phen 300 mg-codein e 30 mg tablet TAKE 1 TO 2 TABLETS BY MOUTH EVERY 6 HOURS NEEDED FOR PAIN 12/20 completed Not Available Not Available Not Available sulfameth oxazole 800 mg-trimet hoprim 160 mg tablet TAKE 1 TABLET BY MOUTH TWICE DAILY FOR 7 DAYS 12/20 completed Not Available Not Available Not Available tramadol 50 mg tablet 1 p.o. q4-6h PRN 12/25 completed Tramadol 50mg Tablet RxNorm: 812527 Allow Substitu tion: True Refill Denied: No Refill Note: Auto Aged Refill DateOccu rred: 10/26/20 13 For Problem: Mastitis Not Available Not Available Not Available Vitamin tablet take 1 daily by mouth 12/13 completed Multivit lamar Tablet Allow Substitu tion: True Refill Denied: No Edited by: kailee(Oralia Connolly ) on 12/13/19 Stopped by: kailee(Oralia Connolly ) on 12/13/19 20 Not Available Not Available Not Available benzonata te 100 mg capsule 12/20 completed Not Available Not Available Not Available naproxen 500 mg tablet,de layed release take 1 tablet (500 mg) by oral route 2 times per day with food as needed 2020 active naproxen 500 mg oral tablet, delayed release (enteric coated) RxNorm: 093703 Allow Substitu tion: True Refill Denied: No Edited by: Joel randle, Monika ) on 03/22/20 Stopped by: patricio(Jair randle, Monika ) on Not Available Not Available Not Available Zofran ODT 8 mg disintegr ating tablet Dissolve 1 tablet PO q 6 hours PRN nausea 01/03 completed Zofran ODT 8mg Tablets, Orally Disinteg rating RxNorm: 307136 Allow Substitu tion: True Refill Denied: No Not Available Not Available Not Available methylpre dnisolone 4 mg tablets in a dose pack FOLLOW PACKAGE DIRECTIO NS 12/20 completed Not Available Not Available Not Available albuterol sulfate HFA 90 mcg/actua tion aerosol inhaler Inhale 1 to 2 puff(s) by mouth q 4 to 6 hr prn active Not Available Not Available No t Available dicloxaci llin 250 mg capsule 12/02 completed Dicloxac illin Sodium Allow Substitu tion: True Refill Denied: No Refill DateOccu rred: 11/02/20 13 Not Available Not Available Not Available Zoloft 25 mg tablet Take 1 tablet(s ) by mouth daily 06/06 completed Zoloft 25mg Tablet RxNorm: 435584 Allow Substitu tion: True Refill Denied: No Not Available Not Available Not Available ondansetr on 4 mg disintegr ating tablet DISSOLVE 1 TABLET BY MOUTH EVERY 4 HOURS NEEDED FOR NAUSEA active Not Available Not Available No t Available Ortho Micronor 0.35 mg tablet Take 1 tablet(s ) by mouth daily as directed . 07/26 completed Micronor 0.35mg Tablet Allow Substitu tion: True Refill Denied: No Not Available Not Available Not Available Vitamin C ER 1,000 mg tablet,ex tended release active Vitamin C 1,000 mg oral tablet, extended release RxNorm: 597076 Allow Substitu tion: False Refill Denied: No Refill DateOccu rred: 02/09/20 21 Edited by: Nery Raphael ) on 03/22/20 21 Stopped by: Nery Raphael ) on Not Available Not Available Not Available Co Q-10 100 mg capsule active Co Q-10 100 mg oral capsule RxNorm: 496680 Allow Substitu tion: False Refill Denied: No Refill DateOccu rred: 02/09/20 21 Edited by: Nery Raphael ) on 03/22/20 21 Stopped by: Nery Raphael ) on Not Available Not Available Not Available Milk of Magnesia 09/26 completed Milk Of Magnesia Allow Substitu tion: True Refill Denied: No Refill DateOccu rred: 06/21/20 13 Not Available Not Available Not Available acetamino phen 04/11 completed Acetamin ophen Allow Substitu tion: True Refill Denied: No Refill DateOccu rred: 02/09/20 15 Not Available Not Available Not Available cefuroxim e axetil Take 1 tablet(s ) by mouth bid for 10 days 10/11 completed Cefuroxi me Axetil 500mg Tablet RxNorm: 674670 Allow Substitu tion: True Refill Denied: No Refill DateOccu rred: 09/26/20 14 Not Available Not Available Not Available ibuprofen PRN 10/28 completed Ibuprofe n 800mg Tablet RxNorm: 802009 Allow Substitu tion: True Refill Denied: No Refill DateOccu rred: 05/08/20 15 Not Available Not Available Not Available clindamyc in HCl 12/02 completed Clindamy mray jo HCl Allow Substitu tion: True Refill Denied: No Refill DateOccu rred: 11/02/20 13 Not Available Not Available Not Available Vitamin D3 active Vitamin D3 Allow Substitu tion: False Refill Denied: No Refill DateOccu rred: 02/09/20 21 Edited by: Nery Raphael ) on 03/22/20 21 Stopped by: jason (Nery Morocho ) on Not Available Not Available Not Available active Allow Substitu tion: False Refill Denied: No Refill DateOccu rred: 02/09/20 21 Edited by: Nery Raphael ) on 03/22/20 21 Stopped by: Nery Raphael ) on Not Available Not Available Not Available Cinnamon active Cinnamon Allow Substitu tion: False Refill Denied: No Refill DateOccu rred: 03/22/20 21 Edited by: Nery Raphael ) on 03/22/20 Stopped by: Nery Raphael ) on Not Available Not Available Not Available butalbita l-acetami nophen-ca ffeine 50 mg-300 mg-40 mg capsule TAKE 1 CAPSULE BY MOUTH EVERY 4 HOURS NEEDED FOR PAIN 12/20 completed Not Available Not Available Not Available turmeric active turmeric RxNorm: 9498614 Allow Substitu tion: False Refill Denied: No Refill DateOccu rred: 02/09/20 21 Edited by: Nery Raphael ) on 03/22/20 Stopped by: Nery Raphael ) on Not Available Not Available Not Available Vitals Date Recorded Body height Body mass index (BMI) Body weight Body temperature Systolic blood pressure Diastolic blood pressure Provider Name and Address Organization Details Last Updated DateTime 2 170.18 cm 35.7 kg/m2 624327. 06 g 98.5 [degF] 120 mm[Hg] 70 mm[Hg] Sherin Rose [facility] 15:52:08 Social History Question Answer Notes LastModified by Organizat ion Details LastModified Time How Many Children Do You Have? 3 Information not available 12/20/2021 What Is Your Relationship Status? Information not available 12/20/2021 Are You Sexually Active? Yes Information not available 12/20/2021 What Types Of Sporting Activities Do You Participate In? Walking 3x Week Information not available 12/20/2021 Sex: Unknown Functional Status None recorded. Mental Status None recorded. Family History Relationship Description Onset Age of this Age Resolved Age Notes LastModified by Organization Details LastModified Time Father No current problems or disability [email or web address] Not available 11:30:36 Mother No current problems or disability [email or web address] Not available 11:30:36 Medical History No medical history recorded. Gynecological History Statement/Question Response Date of Last Pap Smear Current Control Method Condoms Age at Menarche 15 Date of LMP 12/13/2021 Obstetrics History GPAL:G 4 P 3 0 1 0 Type Value Full Term 3 Spontaneous 1 Total 4 Past Encounters Encounter ID Performer Location Encounter Start Date Encounter Closed Date Diagnosis/Indication Diagnosis SNOMED-CT Code Diagnosis ICD10 Code Diagnosis Note [id number] Mercy Sanders MD [facility] [address] [place] [address] 12/20/2021 15:17:10 12/20/2021 16:54:18 Complete miscarriage 656366962 O03.9 UPT neg in office today. Discussed pt's descriptio n consistent with chemical , or very early miscarriag e. Quant hCG ordered for confirmati on. Again discussed control options for both contracept ion as well as ovarian cyst suppressio n but pt declines at this time due to concerns about side effects. F/u PRN. Health Concerns Section Related Observation LastModified by Organization Detai ls LastModified Time None Recorded Concern Status LastModified by Organization Details LastModified Time None Recorded Advance Directives Directive None Recorded Payers Encounter Date Sequence Insurance Name Policy Number Policy Hankins Covered Member ID Hankins Member ID Guarantor Name 12/20/2021 1 [employer]: JEANA GARCIA (PPO) [id number] 3 Anshu Vyas [id number] Anshu Vyas Notes Date Note Type Note Provider Name and Address Organization Details Recorded Time 12/20/2021 text/html Rosaura is here fo r recent positive test at home. She reports LMP 11/21/21. Reports had COVID-19 in early November, had significant back pain with this. Checked a test due to pain on 12/12/21 and reports home UPT was positive. 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 This week, she reports she took two more home tests, both of which were negative. She is not interested in at this time, would like to confirm she is not today. History of ovarian cysts, has previously tried Loestrin OCPs, patch, and POPs and did not like any of these, plans to continue to use condoms for control. Mercy Sanders MD [facility], [place], [address], [facility] 01/03/2022 20:16:22 OBGyn Episode Ob Episode Information Episode Created Date Number of Fetuses Patient Bloodtype Patient rh Status Prepregnancy Weight lbs Domestic Partner Domestic Partner Phone Father Name Occupational Rehabilitation Aide Status 02/14/20 22 1 CLOSED Fetus Data First Name Last Name Admitted to NICU Weight (g) Sex Living Outcome Pediatric Complications Fetus ID Race Codes Race Delivery Type [phone] [phone] F [id number] David Calculation Initial David Date Initial Exam Date Initial Exam Provider Initial Ultrasound Date Last Menstrual Period Date Ultra Sound Weeks Gestation 0 Eighteen To Twenty Week David Update Ultra Sound Date Fundal Height At Umbil Quickening Date Ultra Sound Latest Weeks Gestation Final David Confirmed By Final David Confirmed Date Final David Date Ultra Sound Latest Days Gestation 0 0 Menstrual History Last Menstrual Date Menses Monthly On Bcp Conception Prior Menses Frequency Hcg Plus Date Menarche Onset Age Delivery Information Delivery Date Delivery Type Labor Anesthesia Weeks Gestation Incision Type Labor Labor Length Hrs Delivered By Post Complications Tubal Sterilization Discharge Date Comments 3 274 false Discharge Information Feeding Method Contraceptive Method Maternal HG B and HCT Levels Ob Episode Information Episode Created Date Number of Fetuses Patient Bloodtype Patient rh Status Prepregnancy Weight lbs Domestic Partner Domestic Partner Phone Father Name Occupational Rehabilitation Aide Status 02/14/20 22 1 CLOSED Fetus Data First Name Last Name Admitted to NICU Weight (g) Sex Living Outcome Pediatric Complications Fetus ID Race Codes Race Delivery Type [phone] F [id number] David Calculation Initial David Date Initial Exam Date Initial Exam Provider Initial Ultrasound Date Last Menstrual Period Date Ultra Sound Weeks Gestation 0 Eighteen To Twenty Week David Update Ultra Sound Date Fundal Height At Umbil Quickening Date Ultra Sound Latest Weeks Gestation Final David Confirmed By Final David Confirmed Date Final David Date Ultra Sound Latest Days Gestation 0 0 Menstrual History Last Menstrual Date Menses Monthly On Bcp Conception Prior Menses Frequency Hcg Plus Date Menarche Onset Age Delivery Information Delivery Date Delivery Type Labor Anesthesia Weeks Gestation Incision Type Labor Labor Length Hrs Delivered By Post Complications Tubal Sterilization Discharge Date Comments 5 273 false 11 Discharge Information Feeding Method Contraceptive Method Maternal HG B and HCT Levels Ob Episode Information Episode Created Date Number of Fetuses Patient Bloodtype Patient rh Status Prepregnancy Weight lbs Domestic Partner Domestic Partner Phone Father Name Occupational Rehabilitation Aide Status 02/14/20 1 CLOSED Fetus Data First Name Last Name Admitted to NICU Weight (g) Sex Living Outcome Pediatric Complications Fetus ID Race Codes Race Delivery Type [phone] [phone] F [id number] David Calculation Initial David Date Initial Exam Date Initial Exam Provider Initial Ultrasound Date Last Menstrual Period Date Ultra Sound Weeks Gestation 0 Eighteen To Twenty Week David Update Ultra Sound Date Fundal Height At Umbil Quickening Date Ultra Sound Latest Weeks Gestation Final David Confirmed By Final David Confirmed Date Final David Date Ultra Sound Latest Days Gestation 0 0 Menstrual History Last Menstrual Date Menses Monthly On Bcp Conception Prior Menses Frequency Hcg Plus Date Menarche Onset Age Delivery Information Delivery Date Delivery Type Labor Anesthesia Weeks Gestation Incision Type Labor Labor Length Hrs Delivered By Post Complications Tubal Sterilization Discharge Date Comments 9 None 268 false Comments : Poly Discharge Information Feeding Method Contraceptive Method Maternal HG B and HCT Levels
[2025-01-16] MEDS: LACTATED RINGERS 1,000 ML 30 ML IV CONT ×2 (06:35→09:18)
--- NOTE | 2025-01-16 06:35 | P.PNAN_ITS ---
Anes - Initial Pre Proc Eval Procedure: Operation Date: 01/16/25 07:30 Proposed Procedures p Total Abdominal Hysterectomy with Bilateral Salpingectomy - Sharon Bro MD Date/Time: 01/16/25 06:35 Surgeon: Sharon Bro MD Pre Op Diagnosis: menorrhagia Patient Data Age: 39 Gender: F Height: 1.7 m Weight: 107.9 kg Last Vital Signs Temp 36.2 C L 01/16/25 06:00 Pulse 72 01/16/25 06:00 Resp 18 01/16/25 06:00 BP 121/72 01/16/25 06:00 Pulse Ox 100 01/16/25 06:00 O2 Del Method Room Air 01/16/25 06:00 Allergies Allergy/AdvReac Type Severity Reaction Status Date / Time doxycycline Allergy Severe Dizziness Verified 01/16/25 06:05 Penicillins Allergy Severe Difficulty Verified 01/16/25 06:05 Breathing promethazine (From Phenergan) Allergy Severe Difficulty Verified 01/16/25 06:05 Breathing Sulfa (Sulfonamide Allergy Intermediate Other Verified 01/16/25 06:05 Antibiotics) Home Medications ?Medication ?Instructions ?Recorded ?Confirmed ?Type acetaminophen 500 mg tablet 1,000 mg PO Q6-8H PRN Pain 01/14/24 01/04/25 History (Tylenol Extra Strength) tizanidine 4 mg tablet 4 mg PO Q8-10H PRN Muscle Pain 01/14/24 01/16/25 History Patient hx anesthesia problems: none Family hx anesthesia problems: none Results Review: All pre-operative results and documents have been reviewed as part of the pre- operative evaluation. [facility] Past Medical History Medical History (Updated 01/16/25 @ 06:36 by Paul Benavides DO) Anxiety (normal spontaneous vaginal delivery) x1 Depression Surgical History Surgical History History of section, low transverse x2 Status post cholecystectomy Social History Social History Smoking status: Never smoker Living arrangements: with family Spiritual care concerns: No Anes - Eval Final PreProcedure Day of Procedure 01/16/25 06:35 Patient weight: obese Heart: regular rate and rhythm Lungs: clear to auscultation Airway: Mallampati scale class II Neurological: alert and oriented Last oral intake: >/= 8 hours ASA classification: II Emergent: no Anesthetic plan: proceed Anesthesia type and monitoring: general ETT and standard monitoring Results Review: All pre-operative results and documents have been reviewed as part of the pre- operative evaluation. Informed Consent: The patient's anesthetic plan and its attendant risks and benefits were discussed with the patient/family/POA. Questions were solicited and answers provided to the satisfaction of the patient/family/POA.
[2025-01-16] MEDS: ACETAMINOPHEN 500 MG TABLET 1000 MG PO ×3 (06:36→17:43)
[2025-01-16] MEDS: KETOROLAC 15 MG/ML VIAL (*BKC) IV PUSH (06:36)
--- NOTE | 2025-01-16 07:16 | WPDHPUPDATE1 ---
History and Physical Update Update Date/Time: 01/16/25 07:16 History and Physical has been reviewed, including an updated exam of the patient. There are NO changes in the patient's condition. Risks, benefits, and alternatives have been discussed and questions answered. Patient agrees to proceed with procedure.
--- NOTE | 2025-01-16 07:16 | PM.IMHP ---
H&P: HPI History of Present Illness Date/Time: 01/16/25 07:16 Chief Complaint: Menorrhagia Narrative: the patient is a 39-year-old who presents with menorrhagia for a total abdominal hysterectomy and bilateral salpingectomy. She has failed conservative measures including endometrial ablation and has elected to proceed with hysterectomy. Risks of surgery including infection, bleeding, injury to internal organs (bladder, bowel, ovaries, ureters), DVT, and general anesthesia are reviewed. Patient voices understanding and agrees to proceed. Review of Systems Review of Systems: not repeated day of surgery; patient states no changes in status [facility] Past Medical History Medical History (Updated 01/16/25 @ 06:36 by Paul Benavides DO) Anxiety (normal spontaneous vaginal delivery) x1 Depression Surgical History Surgical History (Updated 01/16/25 @ 07:19 by Sharon Bro MD) History of hysteroscopy History of endometrial ablation History of section, low transverse x2 Status post cholecystectomy Social History Social History Smoking status: Never smoker Living arrangements: with family Spiritual care concerns: No Meds Home Medications and Allergies Home Medications ?Medication ?Instructions ?Recorded ?Confirmed ?Type acetaminophen 500 mg tablet 1,000 mg PO Q6-8H PRN Pain 01/14/24 01/04/25 History (Tylenol Extra Strength) tizanidine 4 mg tablet 4 mg PO Q8-10H PRN Muscle Pain 01/14/24 01/16/25 History Allergies Allergy/AdvReac Type Severity Reaction Status Date / Time doxycycline Allergy Severe Dizziness Verified 01/16/25 06:05 Penicillins Allergy Severe Difficulty Verified 01/16/25 06:05 Breathing promethazine (From Phenergan) Allergy Severe Difficulty Verified 01/16/25 06:05 Breathing Sulfa (Sulfonamide Allergy Intermediate Other Verified 01/16/25 06:05 Antibiotics) Vital Signs Vital Signs - 24 hr 01/16/25 06:00 Temperature 97.2 F L Pulse Rate 72 Respiratory Rate 18 Blood Pressure 121/72 Pulse Oximetry 100 Oxygen Delivery Room Air Exam Const: General: healthy appearing and alert Orientation/consciousness: patient oriented x3 Resp: Effort & Inspection: normal respiratory effort GI: GI Palp: Yes Soft to palpation, No Tenderness to palpation present (GI) and No Palpable mass present : External Female Exam: normal external appearance Speculum Exam - Vagina: normal appearance of the vagina and normal vaginal discharge Speculum Exam - Cervix: normal appearance of the cervix Bimanual exam- vagina & uterus: uterine size normal and consistency normal Bimanual Exam- Adnexa, other: normal adnexae and No adnexal tenderness Neuro: General: patient oriented x3 Assessment and Plan Assessment and plan (1) Menorrhagia: Code(s): N92.0 - Excessive and frequent menstruation with regular cycle Status: Acute Assessment and Plan: plan to proceed with total abdominal hysterectomy and bilateral salpingectomy
[2025-01-16] MEDS: SCOPOLAMINE 1 MG PATCH 1 PATCH TRANSDERM (07:31)
[2025-01-16] MEDS: ceFAZolin 2 GM/D5W 50 ML 2 GM/50 ML BAG IVPB (07:50)
--- NOTE | 2025-01-16 09:04 | W.PM.PROC2 ---
Procedure Note - Detailed Date of Procedure 01/16/25 Pre-op Diagnosis menorrhagia Post-op Diagnosis Same Procedure Performed Total abdominal hysterectomy with bilateral salpingectomy Surgeon Sharon Bro MD Anesthesia General Findings Normal appearing tubes and uterus. Ovaries with bilateral simple cysts the right is approximately 4cm and the left is 3cm. Bladder was densely adherent to the anterior cervix and lower uterine segment. Description of Procedure The patient was taken to the operating room and placed under anesthesia in the dorsal supine position. She was prepped and draped in the usual sterile fashion. Pfannenstiel skin incision was made with a scalpel through her prior incisions. The incision was carried down to the fascia which was nicked in the midline. The incision was extended laterally using Carpenter scissors. Ochsner was used to tent the fascia which was then dissected off using sharp dissection. The rectus muscles were in the midline and the peritoneum tented and entered with Metzenbaum scissors. The incision was extended with blunt traction. The bowels packed away using moist laparotomy sponges and the Hamilton retractor is placed. The uterus is grasped on the cornua with large peans. The round ligaments were doubly ligated with 0 Vicryl. The round ligament is transected and the anterior leaf of the broad ligament incised. The bladder was very adherent to the lower uterine segment and cervix and required sharp dissection to release the bladder flap. The bladder was then bluntly dissected distally. The Dora was placed for bladder retraction. The window was created in the posterior leaf of the broad ligament. The tube was grasped on the left with a Anderson. The use the Z clamp is used to doubly clamp the utero-ovarian ligament including the tube in the proximal side. The pedicle was then transected and suture ligated with 0 Vicryl. The identical procedure was performed on the right. The uterine vessels are skeletonized, clamped with a Z clamp, and transected. The pedicles were tied using 0 Vicryl. The cardinal and uterosacral ligaments are serially clamped, transected, and suture ligated with 0 Vicryl. The uterosacral ligaments were tagged for future use. The scalpel was used to enter the vaginal cuff anteriorly and the vaginal cuff was grasped with a long Allis clamp. The Larry scissors were used to amputate the specimen and then a Allis clamps were used to grasp the vaginal cuff as the specimen is amputated. The vaginal cuff was then closed using 0 Vicryl in a running locked fashion. The angles were tied to the ipsilateral uterosacral ligaments. The pedicles are inspected and the right ovary is noted to have a small arterial that is bleeding. The artery and surrounding tissue are grasped with a berlisher to and suture ligated with 0 Vicryl. The pedicle was still bleeding and it is grasped with a curved Z clamp. The pedicle was then tied using 0 Vicryl. Good hemostasis was then obtained. The cyst on either ovary are drained with Bovie cautery of clear fluid. Good hemostasis is noted at the incision sites. The pelvis was then irrigated all pedicles inspected. Good hemostasis is noted. The vaginal cuff was again inspected noted to be hemostatic. All instruments and sponges were removed. The fascia was closed using 0 Vicryl in a running fashion. Subcutaneous tissues are irrigated made hemostatic using Bovie cautery. The skin is closed using 4-0 Vicryl in a subcuticular fashion. Dermaflex was placed over the incision. Sponge, needle, and instrument counts are correct per the OR staff. Patient received Ancef prior to incision. Estimated Blood Loss 500 Drains Yes (Cantrell catheter) Packing No Pathology Yes (Uterus and bilateral tubes) Complications No immediate complications Condition Stable Disposition PACU
--- NOTE | 2025-01-16 09:14 | P.DS_ITS ---
DS: Admitting Diagnosis Discharge Date 01/18/25 Admitting Diagnosis Menorrhagia DS: Discharge Diagnosis Discharge Diagnosis (1) Status post total abdominal hysterectomy: Code(s): Z90.710 - Acquired absence of both cervix and uterus Status: Acute DS: Summary Hospital Course Hospital Course: At the time of discharge, the patient was tolerating a regular diet, voiding, and ambulating without difficulty. Patient with episode of chest pain. Work up was negative for serious issues and hospitalist agreed with discharge. Pain resolved. Status at Discharge Functional status at discharge: independent ambulation Overall status at discharge: patient is progressing back to baseline Time Spent with Patient Time attestation: Total time spent providing and/or coordinating discharge services: DS: Data Data Completed and Pending Pending studies at discharge: Pending at discharge 01/16/25 08:37 Surgical [PTH] Routine Discharge Plan Discharge Attending physician on discharge: Sharon Bro Discharging Clinician: Sharon Bro Anticipated Discharge Date/Time: 01/18/25 16:08 Patient Disposition: Home, Self-Care Activity: other - see discharge instructions Diet: as tolerated Wound Care Instructions: follow printed instructions Patient Instructions: Hysterectomy (DC) Patient Language: Welsh Stand Alone Forms: General Discharge Instructions Follow-up/Referrals: Sharon Bro MD [Physician] - 1 Week (And 6 week) Discharge Medications: New ibuprofen 600 mg Tablet 600 mg PO Q6HR Qty: 30 0RF Discontinued tizanidine 4 mg tablet 4 mg PO Q8-10H PRN (Reason: Muscle Pain) acetaminophen [Tylenol Extra Strength] 500 mg Tablet 1,000 mg PO Q6-8H PRN (Reason: Pain) Date of admission: 01/16/25 10:54 Primary Care Provider: LilliYesica Admitting Provider: Sharon Bro Attending physician on admission: Sharon Bro Condition: Stable
[2025-01-16] MEDS: fentaNYL CITRATE INJ (*CRX) 100 MCG/2 ML VIAL 25 MCG IV PUSH ×8 (09:22→09:50)
[2025-01-16] MEDS: HYDROmorphone HCL INJ (*CRX) 1 MG/ML SYR 0.25 MG IV PUSH ×6 (10:10→10:48)
--- NOTE | 2025-01-16 11:00 | PC.NURSE ---
This patient, Rosaura Vyas, was received from PACU on 01/16/25 at 1100. Patient/family oriented to unit policies and routines.
[2025-01-16] MEDS: KETOROLAC 30 MG/ML VIAL (*BKC) IV PUSH ×2 (11:29→17:42)
[2025-01-16] MEDS: ONDANSETRON INJ 4 MG/2 ML VIAL IV PUSH (11:29)
[2025-01-16] MEDS: SIMETHICONE 80 MG TAB.CHEW PO ×2 (11:30→17:42)
[2025-01-16] MEDS: DEXTROSE 5%/LACTATED RINGERS 1,000 ML 125 ML IV CONT (11:32)
[2025-01-16 13:36] LABS: BEDSIDEPREGUCG Negative (Negative)
[2025-01-16] MEDS: oxyCODONE HCL (*CRX) 5 MG TAB IR 10 MG PO ×2 (14:05→19:52)
[2025-01-16] MEDS: DOCUSATE SODIUM 100 MG CAPSULE PO (17:42)
[2025-01-17] MEDS: ACETAMINOPHEN 500 MG TABLET 1000 MG PO ×5 (00:15→23:04)
[2025-01-17] MEDS: KETOROLAC 30 MG/ML VIAL (*BKC) IV PUSH (00:16)
[2025-01-17 00:19] VITALS: BP 103/64; PULSE 72; RESP 16; TEMP 37.2; O2SAT 97
[2025-01-17 04:25] VITALS: BP 97/56; PULSE 65; RESP 16; TEMP 36.7; O2SAT 98
[2025-01-17] MEDS: oxyCODONE HCL (*CRX) 5 MG TAB IR PO ×2 (05:19→12:21)
[2025-01-17] MEDS: IBUPROFEN 600 MG TABLET PO ×4 (05:19→23:04)
[2025-01-17] MEDS: DOCUSATE SODIUM 100 MG CAPSULE PO ×2 (07:25→15:36)
[2025-01-17] MEDS: SIMETHICONE 80 MG TAB.CHEW PO ×3 (07:25→15:36)
--- NOTE | 2025-01-17 07:41 | P.PNOB_ITS ---
ACUTE CARE CLINICAL NURSE SPECIALIST - A/P Postoperative Procedures: Procedures Operation Date: 01/16/25 07:30 Actual Procedure Side Surgeon p Total Abdominal Hysterectomy with Bilateral Salpingectomy Bilateral Sharon Bro MD Postoperative day: 1 Postoperative status: doing well Postoperative plan: routine post-op care Time Spent With Patient Time: Total time spent is greater than 50% in coordination of care (as documented) at patient's floor/unit and/or counseling patient: Time with patient: less than 15 minutes ACUTE CARE CLINICAL NURSE SPECIALIST- PN:Subj Post-Op Subjective Date/time seen: 01/17/25 07:41 Interval history: Up to urinate this am. Subjective: patient reports feeling better, patient has no complaints, pain is well controlled and patient is tolerating oral intake Exam 2 Narrative: abdomen soft, nt Inc c/d/i ACUTE CARE CLINICAL NURSE SPECIALIST - PN: Obj Data Vital Signs Vital Signs: Vital Signs - 24 hr 01/16/25 09:18 01/16/25 09:35 01/16/25 09:50 Temperature 97.8 F Pulse Rate 58 L 54 L 60 Respiratory Rate 18 17 17 Blood Pressure 112/61 110/60 118/61 Pulse Oximetry 100 100 100 Oxygen Delivery Simple Face Mask Simple Face Mask Simple Face Mask Oxygen Flow Rate 8 8 8 01/16/25 10:05 01/16/25 10:20 01/16/25 10:38 Temperature 97.5 F L Pulse Rate 55 L 59 L 51 L Respiratory Rate 17 16 16 Blood Pressure 114/65 121/68 121/68 Pulse Oximetry 100 100 100 Oxygen Delivery Nasal Cannula Nasal Cannula Nasal Cannula Oxygen Flow Rate 2 2 2 01/16/25 11:30 01/16/25 11:30 01/16/25 15:50 Temperature 97.6 F Pulse Rate 60 Respiratory Rate 16 Blood Pressure 126/72 Pulse Oximetry 100 100 99 Oxygen Delivery Nasal Cannula Nasal Cannula Oxygen Flow Rate 2 1 01/16/25 15:50 01/16/25 17:45 01/16/25 20:40 Temperature 97.1 F L Pulse Rate 82 75 Respiratory Rate 16 16 Blood Pressure 139/75 Pulse Oximetry 99 99 97 Oxygen Delivery Room Air Room Air Oxygen Flow Rate 01/16/25 20:40 01/17/25 00:19 01/17/25 04:25 Temperature 98.6 F 98.9 F 98.1 F Pulse Rate 75 72 65 Respiratory Rate 16 16 16 Blood Pressure 100/61 103/64 97/56 L Pulse Oximetry 97 97 98 Oxygen Delivery Oxygen Flow Rate Intake/Output Intake/Output: Intake & Output 01/14/25 01/15/25 01/16/25 01/17/25 23:59 23:59 23:59 23:59 Intake Total 1450 850 Output Total 900 800 Balance 550 50 Meds/Results Medications: Active Medications Generic Name Dose Route Start Last Admin Trade Name Freq PRN Reason Stop Dose Admin Acetaminophen 1,000 mg 01/16/25 12:00 01/17/25 05:20 Acetaminophen 500 Mg Tablet PO 1,000 mg Q6HR EDELMIRA Administration Diphenhydramine HCl 50 mg 01/16/25 15:43 Diphenhydramine Hcl Inj 50 Mg/Ml Vial IV PUSH Q6H PRN Itching Docusate Sodium 100 mg 01/16/25 17:00 01/17/25 07:25 Docusate Sodium 100 Mg Capsule PO 100 mg BID EDELMIRA Administration Dextrose/Lactated Ringer's 1,000 mls @ 125 mls/hr 01/16/25 10:54 01/17/25 07:27 Dextrose 5%/Lactated Ringers IV CONT Not Given .Q8H EDELMIRA Ibuprofen 600 mg 01/17/25 06:00 01/17/25 05:19 Ibuprofen 600 Mg Tablet PO 600 mg Q6HR EDELMIRA Administration Naloxone HCl 0.1 mg 01/16/25 10:54 Naloxone Hcl 0.4 Mg/Ml Vial IV PUSH Q2M PRN Respiratory rate less than 10 Ondansetron HCl 4 mg 01/16/25 10:54 01/16/25 11:29 Ondansetron Inj 4 Mg/2 Ml Vial IV PUSH 4 mg Q6H PRN Administration Nausea Oxycodone HCl 5 mg 01/16/25 10:54 01/17/25 05:19 Oxycodone Hcl (*Crx) 5 Mg Tab Ir PO 5 mg Q4H PRN Administration Pain Rated 4-6 Oxycodone HCl 10 mg 01/16/25 10:54 01/16/25 19:52 Oxycodone Hcl (*Crx) 5 Mg Tab Ir PO 10 mg Q6H PRN Administration Pain Rated 7-10 Simethicone 80 mg 01/16/25 12:00 01/17/25 07:25 Simethicone 80 Mg Tab.Chew PO 80 mg TIDWM EDELMIRA Administration Labs 01/17/25 05:22 Labs: Laboratory Results - last 24 hr 01/16/25 06:14 POC Urine HCG, Qual Negative
[2025-01-17 08:00] VITALS: BP 110/69; PULSE 57; RESP 17; TEMP 36.4; O2SAT 97
--- NOTE | 2025-01-17 09:23 | WPDANESPN ---
Anes - Prog Note Post-Op Date/Time: 01/17/25 09:23 Cardiovascular status: normal Respiratory status: normal Airway patency: baseline Mental status: baseline Post-Op hydration status: normal Vital Signs: Last Vital Signs Temp 36.7 C 01/17/25 04:25 Pulse 65 01/17/25 04:25 Resp 16 01/17/25 04:25 BP 97/56 L 01/17/25 04:25 Pulse Ox 98 01/17/25 04:25 O2 Del Method Room Air 01/16/25 20:40 O2 Flow Rate 1 01/16/25 15:50 Pain Score (VAS): 01/09 I/O: Intake & Output 01/16/25 01/17/25 01/17/25 23:59 07:59 15:59 Intake Total 500 850 Output Total 800 Balance 500 50 01/16/25 01/17/25 06:14 05:22 WBC Pending RBC Pending Hgb Pending Hct Pending MCV Pending MCH Pending MCHC Pending RDW Pending Plt Count Pending MPV Pending Immature Gran % (Auto) Pending Neut % (Auto) Pending Lymph % (Auto) Pending [place] % (Auto) Pending Eos % (Auto) Pending Baso % (Auto) Pending Lymph # (Auto) Pending [place] # (Auto) Pending Eos # (Auto) Pending Baso # (Auto) Pending Abs Immat Gran (auto) Pending Absolute Neuts (auto) Pending Absolute Nucleated RBC Pending Nucleated RBC % Pending POC Urine HCG, Qual Negative Post-procedural complaints: none Patient Feedback: Patient satisfied with anesthetic care.
[2025-01-17 11:23] LABS: Basophils Percent Auto 0.2 % (0.2-1.2); Eosinophils Absolute Auto 0.1 K/mm3 (0-0.3); Eosinophils Percent Auto 1.2 % (0-4.4); Hematocrit 36.8 % (37.0-47.0); Hemoglobin 11.5 g/dL (12.0-15.0); Immature Granulocyte Absolute 0.02 K/mm3 (0.00-0.031); Immature Granulocyte Percent A 0.3 % (0-0.5); Lymphocytes Absolute Auto 1.63 K/mm3 (0.9-3.2); Lymphocytes Percent Auto 24.7 % (18.3-44.2); Mean Corpuscular HGB Conc 31.3 g/dl (32-36); Mean Corpuscular Hemoglobin 27.8 pg (26-34); Mean Corpuscular Volume 88.9 fl (80-100); Mean Platelet Volume 10.2 fl (7.4-10.4); Monocytes Absolute Auto 0.5 K/mm3 (0.1-0.6); Monocytes Percent Auto 7.9 % (2.6-8.5); Neutrophils Absolute Auto 4.3 K/mm3 (1.3-6.7); Neutrophils Percent Auto 65.7 % (45.5-73.1); Platelet Count Result 220 k/mm3 (150-375); Red Blood Count 4.14 M/mm3 (4.2-5.4); Red Cell Distribution Width 12.7 % (11.5-14.5); White Blood Count 6.6 K/mm3 (4.5-10.0)
[2025-01-17] MEDS: oxyCODONE HCL (*CRX) 5 MG TAB IR 10 MG PO (19:16)
[2025-01-17 21:40] VITALS: BP 99/52; PULSE 68; RESP 16; TEMP 36.6; O2SAT 100
[2025-01-18] MEDS: ACETAMINOPHEN 500 MG TABLET 1000 MG PO ×3 (05:48→17:07)
[2025-01-18] MEDS: IBUPROFEN 600 MG TABLET PO ×3 (05:49→17:06)
[2025-01-18 06:25] VITALS: BP 111/65; PULSE 66; RESP 18; TEMP 36.8; O2SAT 100
[2025-01-18] MEDS: SIMETHICONE 80 MG TAB.CHEW PO ×2 (06:28→11:41)
--- NOTE | 2025-01-18 06:37 | ECG_ITS ---
Test Date: 2025-01-18 07:45:23 Measurements Intervals [place] Rate: 59 P: 24 ME: 160 QRS: -8 QRSD: 90 T: 30 QT: 425 QTc: 424 Interpretive Statements SINUS BRADYCARDIA DELAYED PRECORDIAL R/S TRANSITION BORDERLINE ST-T WAVE ABNORMALITY- INF/HIGH LAT LEADS BORDERLINE ECG No previous ECG available for comparison Electronically Signed On 01-18-2025 08:19:37 PHYSICS PROFESSOR by Elijah Torres D.O.
[2025-01-18] MEDS: ONDANSETRON HCL ODT 4 MG TABLET PO (06:49)
--- NOTE | 2025-01-18 07:36 | P.PNOB_ITS ---
FOUNDRY HELPER - A/P Assessment and plan (1) Chest pain: Code(s): R07.9 - Chest pain, unspecified Status: Acute Assessment and Plan: Unsure etiology. RUQ pain most tender but prior cholecystectomy. EKG ordered. Check CBC, CMP, and troponins. Consult hospitalist. Given zofran for the nausea. Postoperative Procedures: Procedures Operation Date: 01/16/25 07:30 Actual Procedure Side Surgeon p Total Abdominal Hysterectomy with Bilateral Salpingectomy Bilateral Sharon Bro MD Postoperative day: 2 Postoperative status: other (Chest and upper abdominal pain) Postoperative plan: see orders Time Spent With Patient Time: Total time spent is greater than 50% in coordination of care (as documented) at patient's floor/unit and/or counseling patient: Time with patient: 15 - 25 minutes FOUNDRY HELPER- PN:Saman Post-Op Subjective Date/time seen: 01/18/25 07:36 Interval history: Was feeling well until this am. Complains of generalized chest pain. Initially sharp but feels better now. Bilateral more on right. Hurts to take a deep breath. No SOB. Subjective: pain is well controlled (incisional and abdominal pain well controlled), patient is tolerating oral intake and patient reports nausea (vomited x 1) Exam 2 Const: General: no acute distress Orientation/consciousness: patient oriented x3 Chest: Chest palpation & inspection: other (tender to left of sternum and upper right rib area in axillary line) Resp: Effort & Inspection: normal respiratory effort Auscultation: clear to auscultation bilaterally GI: Inspection: non-distended and other (Incision C/D/I) GI Palp: Yes abdominal tenderness (RUQ tenderness>LUQ tenderness; mild epigastric tenderness), Yes Soft to palpation, No Guarding due to palpation present (GI) and No Rebound tenderness present FOUNDRY HELPER - PN: Obj Data Vital Signs Vital Signs: Vital Signs - 24 hr 01/17/25 08:00 01/17/25 08:00 01/17/25 21:40 Temperature 97.6 F Pulse Rate 57 L 68 Respiratory Rate 17 16 Blood Pressure 110/69 Pulse Oximetry 97 100 Oxygen Delivery Room Air Room Air 01/17/25 21:40 01/18/25 06:25 Temperature 97.8 F 98.2 F Pulse Rate 68 66 Respiratory Rate 18 Blood Pressure 99/52 L 111/65 Pulse Oximetry 100 100 Oxygen Delivery Intake/Output Intake/Output: Intake & Output 01/15/25 01/16/25 01/17/25 01/18/25 23:59 23:59 23:59 23:59 Intake Total 1450 1350 Output Total 900 1200 Balance 550 150 Meds/Results Medications: Active Medications Generic Name Dose Route Start Last Admin Trade Name Freq PRN Reason Stop Dose Admin Acetaminophen 1,000 mg 01/16/25 12:00 01/18/25 05:48 Acetaminophen 500 Mg Tablet PO 1,000 mg Q6HR EDELMIRA Administration Diphenhydramine HCl 50 mg 01/16/25 15:43 Diphenhydramine Hcl Inj 50 Mg/Ml Vial IV PUSH Q6H PRN Itching Docusate Sodium 100 mg 01/16/25 17:00 01/17/25 15:36 Docusate Sodium 100 Mg Capsule PO 100 mg BID EDELMIRA Administration Dextrose/Lactated Ringer's 1,000 mls @ 125 mls/hr 01/16/25 10:54 01/17/25 12:54 Dextrose 5%/Lactated Ringers IV CONT Not Given .Q8H EDELMIRA Ibuprofen 600 mg 01/17/25 06:00 01/18/25 05:49 Ibuprofen 600 Mg Tablet PO 600 mg Q6HR EDELMIRA Administration Naloxone HCl 0.1 mg 01/16/25 10:54 Naloxone Hcl 0.4 Mg/Ml Vial IV PUSH Q2M PRN Respiratory rate less than 10 Ondansetron HCl 4 mg 01/16/25 10:54 01/16/25 11:29 Ondansetron Inj 4 Mg/2 Ml Vial IV PUSH 4 mg Q6H PRN Administration Nausea Ondansetron HCl 4 mg 01/18/25 06:37 01/18/25 06:49 Ondansetron Hcl Odt 4 Mg Tablet PO 4 mg Q6H PRN Administration Nausea And Vomiting Oxycodone HCl 5 mg 01/16/25 10:54 01/17/25 12:21 Oxycodone Hcl (*Crx) 5 Mg Tab Ir PO 5 mg Q4H PRN Administration Pain Rated 4-6 Oxycodone HCl 10 mg 01/16/25 10:54 01/17/25 19:16 Oxycodone Hcl (*Crx) 5 Mg Tab Ir PO 10 mg Q6H PRN Administration Pain Rated 7-10 Simethicone 80 mg 01/16/25 12:00 01/18/25 06:28 Simethicone 80 Mg Tab.Chew PO 80 mg TIDWM EDELMIRA Administration Labs 01/17/25 11:17 Labs: Laboratory Results - last 24 hr 01/17/25 11:17 WBC 6.6 RBC 4.14 L Hgb 11.5 L D Hct 36.8 L MCV 88.9 MCH 27.8 MCHC 31.3 L RDW 12.7 Plt Count 220 MPV 10.2 Immature Gran % (Auto) 0.3 Neut % (Auto) 65.7 Lymph % (Auto) 24.7 [place] % (Auto) 7.9 Eos % (Auto) 1.2 Baso % (Auto) 0.2 Lymph # (Auto) 1.63 [place] # (Auto) 0.5 Eos # (Auto) 0.1 Baso # (Auto) 0.0 Abs Immat Gran (auto) 0.02 Absolute Neuts (auto) 4.3 Absolute Nucleated RBC 0.000 Nucleated RBC % 0.0
[2025-01-18 08:18] LABS: Basophils Percent Auto 0.3 % (0.2-1.2); Eosinophils Absolute Auto 0.1 K/mm3 (0-0.3); Eosinophils Percent Auto 2.3 % (0-4.4); Hematocrit 34.2 % (37.0-47.0); Hemoglobin 10.8 g/dL (12.0-15.0); Immature Granulocyte Absolute 0.04 K/mm3 (0.00-0.031); Immature Granulocyte Percent A 0.7 % (0-0.5); Lymphocytes Absolute Auto 1.65 K/mm3 (0.9-3.2); Mean Corpuscular HGB Conc 31.6 g/dl (32-36); Mean Corpuscular Volume 88.6 fl (80-100); Monocytes Absolute Auto 0.7 K/mm3 (0.1-0.6); Neutrophils Absolute Auto 3.5 K/mm3 (1.3-6.7); Neutrophils Percent Auto 57.7 % (45.5-73.1); Platelet Count Result 208 k/mm3 (150-375); Red Blood Count 3.86 M/mm3 (4.2-5.4); White Blood Count 6.1 K/mm3 (4.5-10.0)
[2025-01-18 08:24] LABS: Alanine Aminotransferase 41 U/L (6-35); Albumin Level 3.1 g/dL (3.5-5.1); Alkaline Phosphatase 68 U/L (38-126); Anion Gap 3 mmol/L (4-12); Aspartate Amino Transferase 24 U/L (14-36); Bilirubin,Total 0.4 mg/dL (0.2-1.3); Blood Urea Nitrogen 8 mg/dL (7-17); Calcium 8.3 mg/dL (8.4-10.2); Carbon Dioxide 31 mmol/L (22-30); Chloride 103 mmol/L (98-107); Estimated CRCL calculation 150 ml/min; Estimated Glomerular Filt Rate > 60; Glucose 95 mg/dL (65-110); Potassium 3.4 mmol/L (3.4-5.0); Sodium 137 mmol/L (137-145)
[2025-01-18 08:36] LABS: Troponin I < 0.012 ng/mL (0.000-0.034)
--- NOTE | 2025-01-18 08:47 | P.CONIM_ITS ---
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 Pain is worse with cough and deep breath Troponin negative, EKG showed sinus rhythm no specific ST T-wave changes Risk of PE Ordered CT chest, that showed no acute pulmonary embolism or other acute cardiopulmonary disease. A showed atelectasis in both lower lobes Suspecting pleural chest pain Offer incentive spirometry Pain medication p.r.n. menorrhagia status post hysterectomy and bilateral salpingectomy 01/16 without complication. Surgical wound is dry and clean Anemia Stable No active bleeding Thank you for allowing us to participate in the care of the patient HPI Date of Consult Consult date: 01/18/25 Requesting Physician: Sharon Bro MD Primary Care Provider: Yesica StovallMD Consult Narrative Narrative: Rosaura Vyas is a 39 year old female history of menorrhagia status post hysterectomy and bilateral salpingectomy 01/16 without complication. Patient developed chest pain in the morning, locating in the left chest, severe about 7/10, shows with shortness breath. The pain was worse with deep breath and cough. Patient denies palpitation, lightheadedness, abdomen pain, nausea vomiting diarrhea dysuria or bloody stools. When I saw exam patient, chest pain was subsiding. Troponin negative, EKG shows sinus rhythm no specific ST or T- wave changes. Patient denies history of CAD, DVT, PE. Patient was afebrile, blood pressure stable on the lower side, patient is on room air. Labs reviewed, hemoglobin 10.8 stable since yesterday. Review of Systems 2 Review of Systems: ROS negative except above PMFSH Past Medical History Medical History (Updated 01/18/25 @ 07:41 by Sharon Bro MD) Anxiety (normal spontaneous vaginal delivery) x1 Depression Surgical History Surgical History (Updated 01/16/25 @ 09:14 by Sharon Bro MD) History of hysteroscopy History of endometrial ablation History of section, low transverse x2 Status post cholecystectomy Social History Social History Smoking status: Never smoker Living arrangements: with family Spiritual care concerns: No Meds Home Medications and Allergies Home Medications ?Medication ?Instructions ?Recorded ?Confirmed ?Type acetaminophen 500 mg tablet 1,000 mg PO Q6-8H PRN Pain 01/14/24 01/04/25 History (Tylenol Extra Strength) tizanidine 4 mg tablet 4 mg PO Q8-10H PRN Muscle Pain 01/14/24 01/16/25 History Allergies Allergy/AdvReac Type Severity Reaction Status Date / Time doxycycline Allergy Severe Dizziness Verified 01/16/25 06:05 Penicillins Allergy Severe Difficulty Verified 01/16/25 06:05 Breathing promethazine (From Phenergan) Allergy Severe Difficulty Verified 01/16/25 06:05 Breathing Sulfa (Sulfonamide Allergy Intermediate Other Verified 01/16/25 06:05 Antibiotics) Vital Signs Vital Signs - 24 hr 01/17/25 21:40 01/17/25 21:40 01/18/25 06:25 Temperature 97.8 F 98.2 F Pulse Rate 68 68 66 Respiratory Rate 16 18 Blood Pressure 99/52 L 111/65 Pulse Oximetry 100 100 100 Oxygen Delivery Room Air Exam 2 Narrative: GENERAL: Pleasant, in no acute distress. Well-nourished. - EYES: EOMI. Anicteric. - HENT: Moist mucous membranes. - LUNGS: Clear to auscultation bilateral ly, no wheezing, rhonchi, or rales. - CARDIOVASCULAR: Regular rate and rhyth m. No murmur. No JVD. - ABDOMEN: Soft, non-tender and non-dist ended. No palpable masses. Surgical wound is dry and clean - EXTREMITIES: No edema. Peripheral puls es 2+. Non-tender. - NEUROLOGIC: No focal neurological defi cits. CN II-XII grossly intact. - PSYCHIATRIC: Awake, Alert and oriented x 3. Appropriate mood and affect. - SKIN: No rashes or lesions. Warm. - LYMPH: No cervical lymphadenopathy. Results Labs 01/18/25 08:02 01/18/25 08:02 Labs: Short CBC 01/17/25 01/18/25 Range/Units 11:17 08:02 WBC 6.6 6.1 (4.5-10.0) K/mm3 Hgb 11.5 L D 10.8 L (12.0-15.0) g/dL Hct 36.8 L 34.2 L (37.0-47.0) % Plt Count 220 208 (150-375) k/mm3 BMP 01/18/25 08:02 Sodium 137 Potassium 3.4 Chloride 103 Carbon Dioxide 31 H BUN 8 Creatinine 0.54 L Glucose 95 Calcium 8.3 L Cardiac Enzymes 01/18/25 Range/Units 08:02 Troponin I < 0.012 (0.000-0.034) ng/mL Liver Function 01/18/25 Range/Units 08:02 Total Bilirubin 0.4 (0.2-1.3) mg/dL AST 24 (14-36) U/L ALT 41 H (6-35) U/L Alkaline Phosphatase 68 (38-126) U/L Albumin 3.1 L (3.5-5.1) g/dL
[2025-01-18] MEDS: DOCUSATE SODIUM 100 MG CAPSULE PO (11:41)
[2025-01-18 15:16] VITALS: BP 116/61; PULSE 60; RESP 18; TEMP 36.4; O2SAT 99
== END 2025-01-18 17:11 | disposition home or self-care (01) | DRG 743 ==
LOC: ANHOB2 10:57
PROVIDERS: Admitting Provider Obstetrics & Gynecology Gynecology; PCP Internal Medicine; Visit Provider Obstetrics & Gynecology Gynecology
PROC: 0UT94ZZ Resection of Uterus, Percutaneous Endoscopic Approach (ICD-10-PCS; principal; 2025-01-16 07:30)
DX: N92.0 Excessive and frequent menstruation with regular cycle (principal); N83.292 Other ovarian cyst, left side; N83.291 Other ovarian cyst, right side; Z90.49 Acquired absence of other specified parts of digestive tract; E66.9 Obesity, unspecified; Z68.37 Body mass index [BMI] 37.0-37.9, adult; R07.81 Pleurodynia
CPT/HCPCS: 36415; 71046; 71275; 80053; 84484; 85025; 88307; 93005; A9270; J0690; J1100; J1171; J1885; J2003; J2250; J2405; J2704; J3010; J7120; J7121; Q9967

== ENCOUNTER 2025-07-24 09:44 | Outpatient (CLI) | payer OTHER, SELFPAY ==
--- NOTE | ~2025-07-24 | US_ITS ---
US thyroid INDICATION: Nontoxic thyroid nodule TECHNIQUE: Real-sonographic images of the thyroid gland were obtained. COMPARISON: No prior studies for comparison. FINDINGS: The right thyroid lobe measures 4.6 x 1.6 x 1.6 cm. The left thyroid lobe measures 4.6 x 1.3 x 1.5 cm. There are several tiny cysts of the right thyroid lobe, benign. In the isthmus there is a solid hypoechoic wider than tall smoothly marginated mass with internal vascularity and no echogenic foci measuring 2.6 x 2.1 x 1.2 cm, TR 4. IMPRESSION: 1. Mass involving the isthmus measuring 2.6 cm greatest dimension, TR 4. Ultrasound-guided fine-needle aspiration biopsy recommended. Reviewed, dictated and finalized at location O. IMPRESSION: 1. Mass involving the isthmus measuring 2.6 cm greatest dimension, TR 4. Ultra sound-guided fine-needle aspiration biopsy recommended.
== END 2025-07-24 09:45 | disposition home or self-care (01) ==
LOC: MICIMG 09:46
PROVIDERS: PCP Internal Medicine
DX: E04.1 Nontoxic single thyroid nodule (principal)
CPT/HCPCS: 76536

== ENCOUNTER 2025-08-14 01:25 | Day surgery (SDC) | payer OTHER, SELFPAY ==
[2025-08-03 16:18] VITALS: BMI 37.0
--- NOTE | 2025-08-03 16:25 | SUR.PREOP ---
Report to the Outpatient Waiting Room, entrance under the green pavilion located off [facility], at time 0800 on date 08/14/25. Planned Procedure Time: 1000.? Time changes happen often and if your time is changed the preop area will call you the afternoon before. - You and your visitor will be asked to self-screen and do not enter if you have any COVID symptoms. Please call surgeon if you need to reschedule. - A mask is optional within the hospital at this time. Patients may have clear liquids (water, carbonated beverages, clear teas, apple juice) until 3 hours prior to surgery with a maximum of 20 ounces. - No food from midnight until time of surgery and no smoking, or chewing tobacco (or any form of nicotine). No chewing gum, candy or mints. - Infants may have breast milk until 4 hours before surgery, formula 6 hours prior to surgery. - Children will be allowed to drink immediately following surgery.? If applicable, please bring a bottle or sippy cup to assist with drinking. Juice, water, soda, and popsicles are readily available.? For infants on formula, please bring formula the day of surgery.? Pacifiers are allowed. Take only the following medications with a SIP of water on the morning of surgery: __n/a_ DO NOT STOP ANY OF YOUR OTHER PRESCRIPTION MEDICATIONS PRIOR TO SURGERY EXCEPT THE FOLLOWING Hold all vitamins and supplements for 3 days per anesthesiologist. Medications to discontinue per physician n/a Date to take last dose Please no make-up, nail kiswahili, hairspray, perfume, deodorant, or body powder the day of surgery.? No jewelry (including any body piercings) or valuables the day of surgery, leave them at home.? Please take a shower or bath the night before, or the morning of, surgery with an antibacterial soap.? Wear comfortable, loose fitting clothing.? Children are encouraged to wear pajamas. - Jewelry must be removed prior to entering the operating room.? Rings and piercings that are not removed may be cut off. - The hospital will not accept responsibility for valuables.? - Please leave all valuables, including medications, at home the day of surgery. If you are going home after surgery, a licensed services delivery driver must drive you home.? - NO public transportation without another adult if you receive anesthesia. - We recommend that an adult stay with you for 24 hours following discharge. - We also recommend that you do not drive, make important decision, drink alcoholic beverages, or take any drugs that were not prescribed by your health care provider for at least 24 hours after your discharge time. For Pediatric surgeries, we recommend two adults accompany the child home. Follow any additional instructions given to you from your surgeon. Telephone instructions given to patient and asked if any additional questions and then verbalized understanding. Patient advised to call surgeon office or pre surgery nurse liaison [phone] if any additional questions.
--- NOTE | 2025-08-14 07:14 | WPDHPUPDATE1 ---
History and Physical Update Update Date/Time: 08/14/25 07:14 History and Physical has been reviewed, including an updated exam of the patient. There are NO changes in the patient's condition. Risks, benefits, and alternatives have been discussed and questions answered. Patient agrees to proceed with procedure.
--- NOTE | 2025-08-14 07:15 | PM.HPGS ---
History of Present Illness History of Present Illness Consent: Risks, benefits, and alternatives have been discussed and questions answered. Patient agrees to proceed with procedure. Chief complaint: vaginal polyp Narrative: Rosarua Vyas is a 40 year old female with a vaginal polyp arising from the upper left vaginal wall. Patient presents for excision. Risks of infection, bleeding, and possible pathology are reviewed. Patient voices understanding and agrees to proceed. Review of Systems Review of Systems: not repeated day of surgery; patient states no changes in status PMFSH Past Medical History Medical History (Updated 08/14/25 @ 07:18 by Sharon Bro MD) Anxiety (normal spontaneous vaginal delivery) x1 Depression Surgical History Surgical History (Updated 08/14/25 @ 07:17 by Sharon Bro MD) Status post hysterectomy With bilateral salpingectomy History of hysteroscopy History of endometrial ablation History of section, low transverse x2 Status post cholecystectomy Social History Social History Smoking status: Never smoker Substance use: never Living arrangements: with family Spiritual care concerns: No Meds Home Medications and Allergies Home Medications ?Medication ?Instructions ?Recorded ?Confirmed ?Type ibuprofen 600 mg tablet 600 mg PO Q6HR #30 tabs 01/18/25 08/03/25 Rx Allergies Allergy/AdvReac Type Severity Reaction Status Date / Time doxycycline Allergy Severe Dizziness Verified 01/16/25 06:05 terrance Allergy Severe Difficulty Verified 08/03/25 16:18 Breathing Penicillins Allergy Severe Difficulty Verified 01/16/25 06:05 Breathing promethazine (From Phenergan) Allergy Severe Difficulty Verified 01/16/25 06:05 Breathing Sulfa (Sulfonamide Allergy Intermediate Other Verified 01/16/25 06:05 Antibiotics) Exam Const: General: healthy appearing and alert Orientation/consciousness: patient oriented x3 Resp: Effort & Inspection: normal respiratory effort : External Female Exam: normal external appearance Speculum Exam - Vagina: normal vaginal discharge and mass (Upper left vaginal wall with a 1cm mass appearing to be a polyp) Bimanual Exam- Adnexa, other: normal adnexae and No adnexal tenderness Neuro: General: patient oriented x3 Assessment and Plan Assessment and plan (1) Vaginal polyp: Code(s): N84.2 - Polyp of vagina Status: Acute Assessment and Plan: Plan to proceed with excision
[2025-08-14] MEDS: LACTATED RINGERS 1,000 ML 30 ML IV CONT (08:15)
--- NOTE | 2025-08-14 08:35 | WPDANESEPPF ---
Anes - Initial Pre Proc Eval Procedure: Operation Date: 08/14/25 10:00 Proposed Procedures p Excision of Vaginal Polyp - Sharon Bro MD Date/Time: 08/14/25 08:35 Surgeon: Sharon Bro MD Pre Op Diagnosis: vaginal polyp Patient Data Age: 40 Gender: F Height: 1.7 m Weight: 107.5 kg Allergies Allergy/AdvReac Type Severity Reaction Status Date / Time doxycycline Allergy Severe Dizziness Verified 08/14/25 08:34 terrance Allergy Severe Difficulty Verified 08/14/25 08:34 Breathing Penicillins Allergy Severe Difficulty Verified 08/14/25 08:34 Breathing promethazine (From Phenergan) Allergy Severe Difficulty Verified 08/14/25 08:34 Breathing Sulfa (Sulfonamide Allergy Intermediate Other Verified 08/14/25 08:34 Antibiotics) Home Medications ?Medication ?Instructions ?Recorded ?Confirmed ?Type ibuprofen 600 mg tablet 600 mg PO Q6HR #30 tabs 01/18/25 08/03/25 Rx Patient hx anesthesia problems: none Family hx anesthesia problems: none Results Review: All pre-operative results and documents have been reviewed as part of the pre-operative evaluation. COUNT INCLUDES THE [facility] Past Medical History Medical History Anxiety (normal spontaneous vaginal delivery) x1 Depression Surgical History Surgical History Status post hysterectomy With bilateral salpingectomy History of hysteroscopy History of endometrial ablation History of section, low transverse x2 Status post cholecystectomy Social History Social History Smoking status: Never smoker Substance use: never Living arrangements: with family Spiritual care concerns: No Anes - Eval Final PreProcedure Day of Procedure 08/14/25 08:35 Patient weight: obese Heart: regular rate and rhythm Lungs: clear to auscultation Airway: Mallampati scale class II Neurological: alert and oriented Last oral intake: >/= 8 hours ASA classification: II Emergent: no Anesthetic plan: proceed Anesthesia type and monitoring: general GIVS and standard monitoring Results Review: All pre-operative results and documents have been reviewed as part of the pre-operative evaluation. Informed Consent: The patient's anesthetic plan and its attendant risks and benefits were discussed with the patient/family/POA. Questions were solicited and answers provided to the satisfaction of the patient/family/POA.
[2025-08-14 08:39] VITALS: BP 106/56; PULSE 60; RESP 16; TEMP 36.3; O2SAT 100
[2025-08-14] MEDS: ACETAMINOPHEN 500 MG TABLET 1000 MG PO (08:42)
[2025-08-14] MEDS: KETOROLAC 30 MG/ML VIAL (*BKC) IV PUSH (10:32)
--- NOTE | 2025-08-14 10:32 | S_PTH ---
PATIENT: Rosaura Vyas LOC: [facility] U#:[id number] AGE/SX: 40/F ROOM: RE08/14/[address]: Sharon Bro MD : 1985 BED: DIS: 08/14/2025 SPEC #: [id number] RECD: 08/14/25 11:38 STATUS: ALYSE RE #: [id number] LETA: 08/14/25 10:[address]: Sharon Bro DEPT: [facility] Surgical RECD BY: Kathia Bonilla ENTERED: 08/14/25 11:39 SP TYPE: Surgical OTHR DR: Yesica StovallMD Tissues: A - Polyp Procedures: Hematoxylin and Eosin Stain Gross and Microscopic Level 4
--- NOTE | 2025-08-14 10:34 | W.PM.PROC2 ---
Procedure Note - Detailed Date of Procedure 08/14/25 Pre-op Diagnosis vaginal polyp Post-op Diagnosis Same Procedure Performed Excision of vaginal polyp Surgeon Sharon Bro MD Anesthesia MAC Findings Approximately 1cm polyp at the right upper vagina Description of Procedure The patient was taken to the operating room and placed under anesthesia in the dorsal lithotomy position. She was prepped and draped in usual sterile fashion. [place] speculum was placed in the vagina. Polyp was immediately visible. The polyp was grasped with an Allis clamp and the majority was removed in 1 piece. It is very fragile. Remaining pieces were removed using the Allis clamp until no further abnormal tissue was visible. The Bovie cautery was used to cauterize the base until good hemostasis is noted. All instruments are removed. Sponge, needle, and instrument counts are correct per the OR staff. The patient was awakened from anesthesia and taken to recovery in stable condition. Estimated Blood Loss 5 Drains No Packing No Pathology Yes (Vaginal polyp pieces) Complications No immediate complications Condition Stable Disposition PACU
[2025-08-14 10:40] VITALS: BP 103/56; PULSE 58; RESP 14; O2SAT 97
[2025-08-14 11:10] VITALS: BP 111/66; PULSE 49; RESP 14
[2025-08-14 11:40] VITALS: BP 106/64; PULSE 45; RESP 16
--- NOTE | 2025-08-14 12:07 | SUR.PHASEII ---
1145: patient ready for dc.
== END 2025-08-14 12:05 | disposition home or self-care (01) ==
PROVIDERS: PCP Internal Medicine; Visit Provider Obstetrics & Gynecology Gynecology
PROC: (CPT 57135; principal; 2025-08-14 10:00)
DX: N84.2 Polyp of vagina (principal); F41.9 Anxiety disorder, unspecified; F32.A Depression, unspecified; E66.9 Obesity, unspecified; Z68.36 Body mass index [BMI] 36.0-36.9, adult; Z79.1 Long term (current) use of non-steroidal anti-inflammatories (NSAID); Z98.890 Other specified postprocedural states; Z98.891 History of uterine scar from previous surgery; Z90.49 Acquired absence of other specified parts of digestive tract
CPT/HCPCS: 57135; 88305; A9270; J1100; J1200; J1885; J2003; J2250; J2405; J2704; J3010; J7120

== ENCOUNTER 2025-09-05 09:46 | Outpatient (CLI) | payer OTHER, SELFPAY ==
--- NOTE | ~2025-09-05 | US_ITS ---
EXAMINATION: US FNA w image guidance DATE: 09/05/2025 11:15 INDICATION: Thyroid nodule TECHNIQUE: A time-out was performed to verify the patient's name, date of , and procedure to be performed. The procedure and its benefits and risks were discussed with the patient. Risks specifically discussed included bleeding and infection. The patient understood the risks and agreed to proceed. The neck was prepped and draped in the usual sterile manner. 6 mL 1% lidocaine was used for local anesthesia. 6 passes were made with a 25G needle into the lesion. Appropriate needle location was documented with continuous sonographic guidance. A sterile bandage was applied. There were no immediate complications. FINDINGS: Grayscale ultrasound images demonstrate biopsy needles advanced into a 2.5 x 2.0 x 1.5 cm solid hypoechoic nodule at the left side of the thyroid isthmus. IMPRESSION: 1. Successful ultrasound-guided fine needle aspiration of the 2.5 cm TI RADS 4 nodule of concern at the left side of the thyroid isthmus.. Reviewed, dictated and finalized at location A.
--- OUTSIDE RECORDS SUMMARY | 2025-09-05 10:26 | XMS_ITS | Encounter Summary ---
Author Organization [facility] Address [address] [place] [address] Care Team Providers Care Boat Loader Name Role Phone Yesica Stovall MD Primary Care Provider [phone]- [phone] Encounter Details Date Type Department Care Team (Late st Contact Info) Description 06/22/2019 Hospital Follow-up Call [facility] [place] [address] Freda Penaloza RN Social History Tobacco Use [...] Rule Out 12/01/2021 12/01/2021 12/01/2021 4:03 PM LAW PROFESSOR COVID-19 Confirmed 12/01/2021 12/01/2021 12:32 AM LAW PROFESSOR COVID-19 Rule Out 04/29/2022 04/29/2022 04/29/2022 2:19 AM CDT documented as of this encounter Care Teams Boat Loader Relationship Specialty Start Date End Date Yesica Stovall MD PCP - General INTERNAL MEDICINE 01/23/18 documented as of this encounter
--- OUTSIDE RECORDS SUMMARY | 2025-09-05 10:26 | XMS_ITS | Clinical Summary ---
Author Organization [facility] Address [address] [place] [id number] Care Team Providers Care Track Oiler Name Role Phone Yesica Stovall MD Primary Care Provider Allergies Active Allergy Reactions Criticality Noted Date Comments Doxycycline Dizziness,Headache,V ision changes Medium 04/21/2022 Faye Hives,Itching,Shortn ess of breath,Swelling,Swol kwan tongue High 02/22/2025 Penicillins Shortness of breath High 01/23/2018 Promethazine Shortness of breath,Palpitations High 03/28/2019 Sulfamethoxazole-Trimet hoprim Headache,Joint pain,Other (See comments) Low 10/01/2023 Nausea, stiff neck, Medications ascorbic acid, vitamin C, (VITAMIN C) 1,000 mg CR tablet Active tiZANidine (ZANAFLEX) 4 mg tablet Take 1 tablet (4 mg total) by mouth every 8 (eight) hours as needed for muscle spasms for up to 15 days 45 tablet 4 Active Additional Information Patient not taking.Reported on 08/22/2025 ibuprofen (ADVIL,MOTRIN) 600 mg tablet Take 1 tablet (600 mg total) by mouth every 6 (six) hours 5 Active rizatriptan (MAXALT) 10 mg tablet Take 1 tablet (10 mg total) by mouth as needed 5 Active EPINEPHrine 0.3 mg/0.3 mL auto-injection syringeIndicati ons:Anaphylaxis Inject 0.3 mL (0.3 mg total) into the muscle as instructed as needed for anaphylaxis Call 911 after use. 2 each 11 5 02/23/20 26 Active fluticasone propionate (FLONASE) 50 mcg/actuation nasal spray Administer 2 sprays into each nostril daily 3 each 4 5 Active cetirizine (ZyrTEC) 10 mg tablet Take 1 tablet (10 mg total) by mouth daily as needed for allergies 90 tablet 3 5 04/03/20 26 Active benzonatate (TESSALON) 100 mg capsuleIndicati ons:Cough Take 1 capsule (100 mg total) by mouth 3 (three) times a day as needed for cough 42 capsule 5 Active Active Problems No known active problems Resolved Problems Problem Noted Date Diagnosed Date Resolved Date Gestational diabetes mellitu s (GDM) in third trimester 05/17/2019 11/14/2022 Encounters Date Type Department Care Team Description 08/22/2025 8:00 AM CDT Office Visit [facility] [address] [place] [phone] Che Begum NP Thyroid nodule (Primary Dx); Abnormal thyroid ultrasound; Dysphagia, unspecified type 08/22/2025 Letter (Out) [facility] [address] [place] [phone] from Last 3 Months Immunizations Immunization Administration Dates Next Due Influenza, Quadrivalent, Rec ombinant, Egg Free, Preservative Free, Intramuscular 09/20/2018 Influenza, Quadrivalent, Spl it, Preservative Free, Intramuscular 08/27/2020,11/03/2014 Influenza, Unspecified 01/30/2025(Deferr ed: Patient Refused),08/15/2024(Deferred: Patient Refused),09/09/2023(Deferred: Patient Refused),08/30/2023(Deferred: Patient Refused),09/01/2022(Deferred: Patient Refused),08/30/2022(Deferred: Patient Refused),02/08/2020(Deferred: Patient Refused) Tdap 05/13/2019 Surgical History Surgery Date Site/Laterality Comments SECTION CHOLECYSTECTOMY 10/11/2019 HYSTEROSCOPY 11/26/2023 Bilateral ABLATION 12/31/2023 - 01/28/2024 Uterine HYSTERECTOMY Medical History Medical History Date Comments Anemia 2004 Depression 2019 Menstrual problem Family History Medical History Relation Name Comments Hypertension Father Mike Cancer Maternal Grandfather Maco Obesity Maternal Grandmother Gerri Alzheimer's disease Paternal Grandmother Tsering Relation Name Status Comments Father Mike Alive Maternal Grandfather Maco Maternal Grandmother Gerri Mother Alive Paternal Grandmother [...] points, staff should administer the PHQ-9) 0 08/22/2025 PHQ-9 Answer Date Recorded PHQ-9 Total Score 7 04/26/2024 Comments No Sex and Gender Information Value Date Recorded Sex Assigned at Not on file Legal Sex Female 8:59 PM FINGERPRINT CLASSIFIER Gender Identity Female 02/08/2020 5:42 AM CDT Sexual Orientation Not on file Obstetrics History Last Filed Vital Signs Vital Sign Reading Time Taken Comments Blood Pressure 118/78 08/22/2025 8:14 AM CDT Pulse 79 08/22/2025 8:14 AM CDT Temperature 36.1 C (97 F) 08/22/2025 8:14 AM CDT Respiratory Rate 12 04/26/2024 3:38 PM CDT Oxygen Saturation 98% 08/22/2025 8:14 AM CDT Inhaled Oxygen Concentration - - Weight 108.1 kg (238 lb 6.4 oz) 08/22/2025 8:14 AM CDT Height 170.2 cm (5' 7) 08/22/2025 8:14 AM CDT Body Mass Index 37.34 08/22/2025 8:14 AM CDT Plan of Treatment Health Maintenance Due Date Last Done Comments Hepatitis C Screening 1985 Hepatitis B Screening 2004 HPV Vaccines (1 - 3-dose SCDM series) 2013 Influenza Vaccine (#1) 2025 , 09/20/2018, 11/03/2014 Regular Well Visit/Exam 18-64 05/01/2026 05/01/2025, 04/26/2024, 04/23/2023, Additional history exists Depression Screening 08/22/2026 08/22/2025, 05/10/2025, 05/01/2025, Additional history exists DTaP/Tdap/Td Vaccine (2 - Td or Tdap) 05/13/2029 05/13/2019 Cervical Cancer Screening Discontinued 07/04/2019 Pneumococcal vaccine <65 Aged Out No longer eligible based on patient's age to complete this topic Varicella Vaccines Discontinued Procedures Procedure Name Priority Date/Time Associated Diagnosis Comments PAP SMEAR WITH HPV Routine 07/04/2019 from Last 3 Months or Most Recently Relevant to Health Maintenance Results * PAP SMEAR WITH HPV (07/04/2019) Pap smear Normal Historical Provider MD HEALTH MAINTENANCE Final Result from Last 3 Months or Most Recently Relevant to Health Maintenance [place] [place] [address] [employer] [facility] CHOICE PLUS Member Subscriber Plan / Payer (Ef fective 2024-Present) Name:Rosaura Vyas Relation to Subscriber:Spouse Name:VyasSven Date of :1990 Address: [address] [place] [id number] Payer ID:[id number] (NAIC) Type:[facility] HMO/PPO Address: [place] [phone] Care Teams Track Oiler Relationship Specialty Start Date End Date Yesica Stovall MD PCP - General Internal Medicine 05/19/19
--- OUTSIDE RECORDS SUMMARY | 2025-09-05 10:26 | XMS_ITS | Encounter Summary ---
Author Organization [facility] Address [address] [place] [address] Care Team Providers Care Multicultural Manager Name Role Phone Yesica Stovall MD Primary Care Provider +1- [phone] Encounter Details Date Type Department Care Team (Late st Contact Info) Description 05/26/2024 Sport Telegram Message [facility] Patient Accounts [address] [place] [address] [facility] Provider Action Required Social History Tobacco Use [...] on filedocumented in this encounter Care Teams Multicultural Manager Relationship Specialty Start Date End Date Yesica Stovall MD PCP - General INTERNAL MEDICINE 01/23/18 documented as of this encounter
--- OUTSIDE RECORDS SUMMARY | 2025-09-05 10:26 | XMS_ITS | Clinical Summary ---
Author Organization [facility] Address [address] [place] [address] Care Team Providers Care Substation Design Draftsperson Name Role Phone Yesica Stovall MD Primary Care Provider +1- [phone] Allergies Active Allergy Reactions Criticality Noted Date [...] pain during , antepartum (HH S/HCC) 03/21/2019 Immunizations Immunization Administration Dates Next Due Tdap (Boostrix) 05/13/2019 [...] Sign Reading Time Taken Comments Blood Pressure 123/75 05/02/2025 8:01 PM CDT Pulse 86 05/02/2025 8:01 PM CDT Temperature 36.7 C (98 F) 05/02/2025 6:16 PM CDT Respiratory Rate 18 05/02/2025 8:01 PM CDT Oxygen Saturation 99% 05/02/2025 8:01 PM CDT Inhaled Oxygen Concentration - - Weight 108.4 kg (239 lb) 05/02/2025 6:16 PM CDT Height 170.2 cm (5' 7) 05/02/2025 6:16 PM CDT Body Mass Index 37.43 05/02/2025 6:16 PM CDT Plan of Treatment Health Maintenance Due Date Last Done Comments Annual Physical 1989 Hepatitis C 2004 Hepatitis B Vaccines (1 of 3 - 19+ 3-dose series) 2005 HPV Vaccines (1 - 3-dose SCD M series) 2013 COVID-19 Vaccine ( - 2023-2 5 season) 2025 Influenza Adult (#1) 2025 08/27/2020, 09/20/2018, 11/03/2014 DTaP, Tdap and Td Vaccines ( 2 - Td or Tdap) 05/13/2029 05/13/2019 Meningococcal B Vaccine Aged Out No l onger eligible based on patient's age to complete this topic Meningococcal Vaccine Aged Out No jorge alberto emelina eligible based on patient's age to complete this topic Pneumococcal Vaccine: Pediatrics (0 to 5 Years) and At-Risk Patients (6 to 49 Years) Aged Out No longer eligible b ased on patient's age to complete this topic RSV Immunizations Under 20 Months Aged Out No longer eligible b ased on patient's age to complete this topic Insurance Advance Directives * Full Code (Latest Code Status on File) Date Activated Date Inactivated Comments 06/11/2019 12:52 AM 06/13/2019 8:05 PM * Full Code Date Activated Date Inactivated Comments 03/21/2019 7:29 PM 03/22/2019 11:37 PM Care Teams Substation Design Draftsperson Relationship Specialty Start Date End Date Yesica Stovall MD PCP - General INTERNAL MEDICINE 01/23/18
--- OUTSIDE RECORDS SUMMARY | 2025-09-05 10:26 | XMS_ITS | Clinical Summary ---
Author Organization [facility] Address [address] [place] [address] Care Team Providers Care Compression Molding Machine Operator Name Role Phone Unavailable Primary Care Provider Unavailabl e Source Comments [facility]),non-owned Affiliates and Associated Physician Practices is amultiple site organization consisting of ambulatory clinics and hospital sitesin [place], [place], [place] and [place]. This disclosure is being madepursuant to the Care Everywhere program and may not contain all information available regarding this patient. Last updated 18.[facility] Allergies Active Allergy Reactions Criticality Noted Date Comments Penicillins Shortness of Breath High 06/09/2019 Promethazine Shortness of Breath High 06/09/2019 Medications * Be aware that medications may not be up to date on this document. Alwaysverify current medications with the patient. pyridoxine (VITAMIN B-6) 25 MG tablet Take 50 mg by mouth once daily Active Vit-Fe Fumarate-FA ( VITAMIN) 28-0.8 MG tablet Take 1 tablet by mouth once daily Active diphenhydrAMINE- APAP, sleep, (TYLENOL PM EXTRA STRENGTH PO) Active [...] drink = 0.6 oz pur e alcohol) Comments No Sex and Gender Information Value Date Recorded Sex Assigned at Not on file Legal Sex Female 3:02 PM CDT Gender Identity Not on file Sexual Orientation [...] Health Maintenance Due Date Last Done Comments HIV SCREENING 2001 HEPATITIS C SCREENING 05/06/2004 DTAP/TDAP/TD VACCINES (1 - Tdap) 2005 HEPATITIS B VACCINE (1 of 3 - 19+ 3-dose series) 2005 PAP SMEAR 2007 HPV VACCINE (1 - 3-dose SCDM series) 2013 DEPRESSION SCREENING 11/30/2024 COVID-19 VACCINE (1 - 2023-2 5 season) 2025 INFLUENZA VACCINE (#1) 2025 0, 09/20/2018, 11/03/2014 ZOSTER VACCINE (1 of 2) 2036 HIB VACCINE Aged Out No longer eligi ble based on patient's age to complete this topic MENINGOCOCCAL (Group B) VACCINE SHARED DECISION-MAKING Aged Out No longer eligible based on patient's age to complete this topic MENINGOCOCCAL GROUPS A/C/Y/W VACCINE Aged Out No longer eligible b ased on patient's age to complete this topic PNEUMOCOCCAL VACCINE Aged Out No long er eligible based on patient's age to complete [place] [address] SELF PAY NO INSURANCE Member Subscriber Plan / Payer (Ef fective for All Dates) Name:Ksenia Rios Member ID:Not on file Relation to Subscriber:Not on file Name:KSENIA RIOS Subscriber ID:Not on file Date of :1985 (Home) Address: [address] [place] [address] Payer ID:Not on file Group ID:Not on file Type:Self Pay Address: [facility] Address: [address] [phone] * Guarantor: KSENIA RIOS Account Type Relation to Patient Date of Phone Billing Address Personal/Family Spouse
--- OUTSIDE RECORDS SUMMARY | 2025-09-05 10:26 | XMS_ITS | Encounter Summary ---
Author Organization [facility] Address [address] [place] [address] Care Team Providers Care Firearms Sales Associate Name Role Phone Yesica Stovall MD Primary Care Provider +1- [phone] Encounter Details Date Type Department Care Team (Late st Contact Info) Description 03/23/2019 Hospital Follow-up Call [facility] [place] [address] Teresa Coyne RN Social History Tobacco Use [...] Rule Out 12/01/2021 12/01/2021 12/01/2021 4:03 PM REAL ESTATE JOB TITLES COVID-19 Confirmed 12/01/2021 12/01/2021 12:32 AM REAL ESTATE JOB TITLES COVID-19 Rule Out 04/29/2022 04/29/2022 04/29/2022 2:19 AM CDT documented as of this encounter Care Teams Firearms Sales Associate Relationship Specialty Start Date End Date Yesica Stovall MD PCP - General INTERNAL MEDICINE 01/23/18 documented as of this encounter
--- OUTSIDE RECORDS SUMMARY | 2025-09-05 10:26 | XMS_ITS | Encounter Summary ---
Author Organization [facility] Address [address] [place] [address] Care Team Providers Care Coal Wheeler Name Role Phone Yesica Stovall MD Primary Care Provider +1- [phone] Encounter Details Date Type Department Care Team (Late st Contact Info) Description 04/01/2024 [employer] [facility] Office [address] [place] [id number] [place], [facility] Provider Action Needed Social History Tobacco Use [...] on filedocumented in this encounter Care Teams Coal Wheeler Relationship Specialty Start Date End Date Yesica Stovall MD PCP - General INTERNAL MEDICINE 01/23/18 documented as of this encounter
--- OUTSIDE RECORDS SUMMARY | 2025-09-05 10:26 | XMS_ITS | Encounter Summary ---
Author Organization [facility] Address [address] [place] [address] Care Team Providers Care Vascular Sonographer Name Role Phone Yesica Stovall MD Primary Care Provider +1- [phone] Encounter Details Date Type Department Care Team (Late st Contact Info) Description 08/10/2021 Telephone [facility] Emergency Room [address] [place], [place] [id number] Emergency, Nurse, RN Social History Tobacco Use [...] PM CDT Britt Lopez RN Active * Calculated C-SSRS Risk Score (Lifetime/Recent) Answer Date of Assessment Author Status No Risk Indicated 08/11/2021 2:22 PM CDT Carlo Castellon RN Active * [place] Suicide Severity Rating Scale (Screener/Recent Self-Report) Question Answer Date of Assessment Author Status 1. Wish to be (Past 1 Month) No 08/11/2021 2:22 PM ALEXT Carlo Castellon RN Active 2. Non-Specific Active Suicidal Thoughts (Past 1 Month) No 08/11/2021 2:22 PM CDT Carlo Castellon RN Active 6. Suicidal Behavior (Lifetime) No 08/11/2021 2:22 PM ALEXT Carlo Castellon RN Active documented as of this encounter [...] Rule Out 12/01/2021 12/01/2021 12/01/2021 4:03 PM PRESIDENT AND CHIEF EXECUTIVE OFFICER COVID-19 Confirmed 12/01/2021 12/01/2021 12:32 AM PRESIDENT AND CHIEF EXECUTIVE OFFICER COVID-19 Rule Out 04/29/2022 04/29/2022 04/29/2022 2:19 AM CDT documented as of this encounter Care Teams Vascular Sonographer Relationship Specialty Start Date End Date Yesica Stovall MD PCP - General INTERNAL MEDICINE 01/23/18 documented as of this encounter
--- NOTE | 2025-09-05 11:09 | CY_PTH ---
PATIENT: Rosaura Vyas LOC: [facility] U#:[id number] AGE/SX: 40/F ROOM: RE09/05/[address]: Sharon Bro MD : 1985 BED: DIS: 09/05/2025 SPEC #: [id number] RECD: 09/05/25 11:13 STATUS: ALYSE RE #: [id number] LETA: 09/05/25 11:[address]: Sharon Bro DEPT: [facility] Cytology RECD BY: Lily Cho MLT, ([facility]) ENTERED: 09/05/25 11:14 SP TYPE: Cytology OTHR DR: Yesica StovallMD Tissues: A - FNA Thyroid Procedures: Hematoxylin and Eosin Stain Cell Block Fine Needle Aspiration Evaluation Fna Additional Pass Fine Needle Aspiration Pathologist
== END 2025-09-05 09:47 | disposition home or self-care (01) ==
PROVIDERS: PCP Internal Medicine; Visit Provider Obstetrics & Gynecology Gynecology
DX: E04.1 Nontoxic single thyroid nodule (principal)
CPT/HCPCS: 10005; 88172; 88173; 88177; 88305